=== PATIENT | male | born 1985 | race Native Hawaiian/Other Pacific Islander ===

== ENCOUNTER 2016-09-25 21:11 | Observation (INO) | payer MEDICAID ==
[2016-09-25 21:19] VITALS: BMI 34.5
--- NOTE | 2016-09-25 21:41 | ED PDOC ---
Arrival/HPI <Juan M Damian - Last Filed: 09/25/16 23:23> - General Historian: Patient <Jose D Dey - Last Filed: 09/26/16 14:44> - General Chief Complaint: Upper Extremity Problem/Injury Time Seen by Provider: 09/25/16 21:22 - History of Present Illness Narrative History of Present Illness (Text): 09/25/16 21:42 31 y/o male, pmh including htn/hyperlipidemia, nkda, here with the family member c/o unable to move the left arm since 09/24/2016 7pm. Based on the [facility] charts and the patient's story. Pt. stated that he suddenly developed unable to move the left arm and slurred speech last night around 7pm, arrived at the [facility] around 7:30pm which he was TPA candidate but he declined. He ended up admitted to the [facility] but later sign out against medical advice. The initial CT head at the [facility] was negative. Pt. stated that the slurred speech resolved but still unable to move the left arm and here for the second evaluation. Pt. has no chest pain or shortness of breath. Pt. stated that this is stress related causing his left arm to be unable to move. Pt. has no homocidal or suicidal ideation, no auditory or visual hallucination, no chest pain or shortness of breath. (Jose D Dey) Past Medical History - Provider Review Nursing Documentation Reviewed: Yes - Infectious Disease Hx of Infectious Diseases: None - Cardiac Hx Cardiac Disorders: Yes Hx Hypertension: Yes - Pulmonary Hx Respiratory Disorders: No - Neurological Hx Neurological Disorder: No - HEENT Hx HEENT Disorder: No - Renal Hx Renal Disorder: No - Endocrine/Metabolic Hx Endocrine Disorders: No - Hematological/Oncological Hx Blood Disorders: No - Integumentary Hx Dermatological Disorder: No - Musculoskeletal/Rheumatological Hx Musculoskeletal Disorders: No - Gastrointestinal Hx Gastrointestinal Disorders: No - Genitourinary/Gynecological Hx Genitourinary Disorders: No - Psychiatric Hx Psychophysiologic Disorder: Yes Hx Anxiety: Yes Hx Depression: Yes Hx Substance Use: No - Anesthesia Hx Anesthesia: No <Jose D Dey - Last Filed: 09/26/16 14:44> Family/Social History - Physician Review Nursing Documentation Reviewed: Yes Family/Social History: Unknown Family HX Smoking Status: Heavy Smoker > 10 Cigarettes Daily Hx Alcohol Use: No Hx Substance Use: No <Jose D Dey - Last Filed: 09/26/16 14:44> Allergies/Home Meds <Juan M Damian - Last Filed: 09/25/16 23:23> <Jose D Dey - Last Filed: 09/26/16 14:44> Allergies/Adverse Reactions: Allergies No Known Allergies Allergy (Verified 09/25/16 21:21) Home Medications: Home Meds Medication Instructions Recorded Confirmed Sertraline HCl [Zoloft] 25 mg PO DAILY 09/25/16 09/25/16 Simvastatin [Zocor] 20 mg PO DAILY 09/25/16 09/25/16 Review of Systems - Review of Systems Constitutional: absent: Fatigue, Fevers Eyes: absent: Vision Changes ENT: absent: Hearing Changes Respiratory: absent: SOB Cardiovascular: absent: Chest Pain Gastrointestinal: absent: Abdominal Pain, Nausea, Vomiting Genitourinary Male: absent: Dysuria Musculoskeletal: absent: Arthralgias, Back Pain, Neck Pain, Joint Swelling, Myalgias Neurological: Focal Weakness. absent: Headache, Dizziness, Gait Changes, Speech Changes, Facial Droop, Disequilibrium Endocrine: absent: Diaphoresis Hemo/Lymphatic: absent: Adenopathy Psychiatric: absent: Anxiety <Jose D Dey - Last Filed: 09/26/16 14:44> Physical Exam Vital Signs Reviewed: Yes Temperature: Afebrile Blood Pressure: Normal Pulse: Regular Respiratory Rate: Normal Appearance: Positive for: Well-Appearing, Non-Toxic, Comfortable Pain Distress: None Mental Status: Positive for: Alert and Oriented X 3 - Systems Exam Head: Present: Atraumatic, Normocephalic Pupils: Present: PERRL Extroacular Muscles: Present: EOMI Conjunctiva: Present: Normal Mouth: Present: Moist Mucous Membranes Neck: Present: Normal Range of Motion Respiratory/Chest: Present: Clear to Auscultation, Good Air Exchange. No: Respiratory Distress, Accessory Muscle Use Cardiovascular: Present: Regular Rate and Rhythm, Normal S1, S2. No: Murmurs Abdomen: Present: Normal Bowel Sounds. No: Tenderness, Distention, Peritoneal Signs Back: Present: Normal Inspection Upper Extremity: Present: Normal Inspection. No: Cyanosis, Edema Lower Extremity: Present: Normal Inspection. No: Edema Neurological: Present: GCS=15, Speech Normal, Gait Normal, Memory Normal, Other (LUE: sensation intact, motor 1/5, +radial pulse. RUE/bilateral LE: sensation intact, motor 5/5.) Skin: Present: Warm, Dry, Normal Color. No: Rashes Psychiatric: Present: Alert, Oriented x 3, Normal Insight, Normal Concentration <Jose D Dey - Last Filed: 09/26/16 14:44> Vital Signs Temp Pulse Resp BP Pulse Ox 09/26/16 00:00 72 18 104/62 96 09/25/16 22:38 98.2 F 79 18 131/71 98 09/25/16 21:35 76 18 119/81 97 09/25/16 21:31 98.1 F 80 18 139/88 98 Medical Decision Making <Juan M Damian - Last Filed: 09/25/16 23:23> - Lab Interpretations I have reviewed the lab results: Yes Interpretation: Abnormal lab values (Triglyceride 1427, HDL 24) - RAD Interpretation Track Oiler: Radiologist - EKG Interpretation Interpreted by ED Physician: Yes Type: 12 lead EKG Comparison: Com.w/previous EKG <Jose D Dey - Last Filed: 09/26/16 14:44> ED Course and Treatment: 09/25/16 21:39 -labs/ua/lipid panel/hgba1c -CT head -Chest x-ray -swallow screen -air quality technician -IVF/aspirin -NIHSS 4, past the TPA window, not a TPA candidate, will give aspirin 325mg po if CT head is negative -observe and reassess 09/25/16 23:13 -EKG: NSR @ 75 BPM, no ST elevation or depression, no T wave inversion. -CT head show no acute findings, aspirin 325mg po ordered. -Chest x-ray show no active disease -labs are non-significant with negative troponin except Triglyceride 1427, HDL 24. Lipitor 20mg po ordered. -I did use the 18G needle to test for the pain reflex for the lt. upper extremity. -I will admit the patient to the telemetry floor for the hospitalist for further evaluation. -I discussed the case with the ER attending Dr. Damian, he agreed on the treatment and admission order, he will put in the admission order. 09/25/16 23:58 -I explained to the patient about the labs/radiology results with the patient, he agreed on the admission. -Me and Dr. Damian explained the case to Dr. Triana with Dr. Hedy Thompson's consult, agreed on the admission for the further evaluation and testing if indicated. -Dr. Damian personally spoke to Dr. Hedy Thompson case which request to have MRI of brain/neck MRA, Dr. Damian agreed on the order. (Jose D Dey) - Lab Interpretations Lab Results: 09/25/16 21:52 09/25/16 21:52 Lab Results 09/25/16 21:52: Blood Type AB POSITIVE, Antibody Screen Negative, BBK History Checked Patient has bt 09/25/16 21:52: Sodium 137, Potassium 4.2, Chloride 105, Carbon Dioxide 26, Anion Gap 10, BUN 18, Creatinine 0.9, Est GFR ( Amer) > 60, Est GFR (Non- Af Amer) > 60, Random Glucose 115 H, Calcium 8.6, Total Bilirubin 0.7, AST 31, ALT 48, Alkaline Phosphatase 54, Lactate Dehydrogenase 507, Total Creatine Kinase 152, Troponin I < 0.01, Total Protein 7.4, Albumin 4.0, Globulin 3.4, Albumin/Globulin Ratio 1.2, Triglycerides 1427 H, Cholesterol 184, LDL Cholesterol Direct < 30, HDL Cholesterol 24 L 09/25/16 21:52: PT 10.3, INR 0.95, APTT 28.5 09/25/16 21:52: WBC 8.3, RBC 5.98, Hgb 15.7, Hct 44.6, MCV 74.6 L, MCH 26.3, MCHC 35.2, RDW 14.7 H, Plt Count 211, MPV 9.7, Gran % 53.4, Lymph % (Auto) 37.3 H, [place] % (Auto) 6.7 H, Eos % (Auto) 2.2, Baso % (Auto) 0.4, Gran # 4.43, Lymph # 3.1, [place] # 0.6, Eos # 0.2, Baso # 0.03 - RAD Interpretation Radiology Orders: 09/25/16 21:35 CHEST PORTABLE [RAD] Stat 09/25/16 21:36 HEAD W/O CONTRAST [CT] Stat CT Head: no acute findings. (Dey,Jose D Q) - EKG Interpretation EKG Interpretation (Text): 09/25/16 21:50 EKG: NSR @ 75 BPM, no ST elevation or depression, no T wave inversion. (Jose D Dey Q) - Medication Orders Current Medication Orders: Discontinued Medications Acetaminophen (Tylenol 325mg Tab) 650 mg PO Q6H PRN PRN Reason: Fever >100.4 F Alprazolam (Xanax) 0.5 mg PO STAT STA PRN Reason: Protocol Stop: 09/26/16 09:09 Last Admin: 09/26/16 09:22 Dose: 0.5 mg Re-Assess: Reassess Psych Meds Document 09/26/16 10:22 JFR (Rec: 09/26/16 10:48 JFR [id number]) Reassess Psych Med Effective Aspirin (Aspirin) 325 mg PO STAT STA Stop: 09/25/16 22:39 Last Admin: 09/25/16 23:02 Dose: 325 mg Aspirin (Ecotrin) 81 mg PO 0800 JOSEPH Atorvastatin Calcium (Lipitor) 20 mg PO STAT STA Stop: 09/25/16 23:12 Last Admin: 09/25/16 23:35 Dose: 20 mg Atorvastatin Calcium (Lipitor) 10 mg PO DIN JOSEPH Atorvastatin Calcium (Lipitor) 40 mg PO DIN JOSEPH Atorvastatin Calcium (Lipitor) 10 mg PO DIN JOSEPH Clonazepam (Klonopin) 0.25 mg PO BID JOSEPH PRN Reason: Protocol Last Admin: 09/26/16 10:48 Dose: 0.25 mg Re-Assess: Reassess Psych Meds Document 09/26/16 11:48 JFR (Rec: 09/26/16 12:10 JFR [id number]) Reassess Psych Med Effective Fenofibrate (Tricor) 145 mg PO DAILY [facility] Last Admin: 09/26/16 10:48 Dose: 145 mg Hydralazine HCl (Apresoline) 10 mg IVP Q6 PRN PRN Reason: Systolic Blood Pressure Lorazepam (Ativan) 1 mg IVP ONCE ONE PRN Reason: Protocol Stop: 09/26/16 12:49 Sertraline HCl (Zoloft) 25 mg PO DAILY JOSEPH Sertraline HCl (Zoloft) 125 mg PO DAILY [facility] Last Admin: 09/26/16 10:49 Dose: 125 mg NIHSS Scale ([place]) Time Performed: 21:38 - How Severe is the Stoke Baseline Level of Consciousness: 0=Alert LOC to Questions: 0=Both comments correct LOC to commands: 0=Obeys both correctly Best Gaze: 0=Normal Visual: 0=No visual loss Facial: 0=Normal Motor Arm - Left: 4=No movement Motor Arm - Right: 0=No drift Motor Leg - Left: 0=No drift Motor Leg - Right: 0=No drift Limb Ataxia: 0=Absent Sensory: 0=Normal Best Language: 0=No aphasia Dysarthia: 0=Normal articulation Extinction & Inattention (Neglect): 0=Normal, no object Score: 4 Risk Level: Minor Stroke Risk <Jose D Dey - Last Filed: 09/26/16 14:44> - PA / DISTRICT SALES COORDINATOR / Resident Statement LORIE has reviewed & agrees with the documentation as recorded. LORIE has examined the patient and agrees with the treatment plan. <Juan M Damian - Last Filed: 09/25/16 23:23> - PA / DISTRICT SALES COORDINATOR / Resident Statement LORIE has reviewed & agrees with the documentation as recorded. LORIE has examined the patient and agrees with the treatment plan. <Jose D Dey - Last Filed: 09/26/16 14:44> Disposition/Present on Arrival <Juan M Damian - Last Filed: 09/25/16 23:23> - Present on Arrival Any Indicators Present on Arrival: No History of DVT/PE: No History of Uncontrolled Diabetes: No Urinary Catheter: No History of Decub. Ulcer: No History Surgical Site Infection Following: None - Disposition Have Diagnosis and Disposition been Completed?: Yes Disposition Time: 22:40 Patient Plan: Admission, Telemetry <Jose D Dey - Last Filed: 09/26/16 14:44> - Disposition Diagnosis: Focal neurological deficit, Hypertriglyceridemia Disposition: HOSPITALIZED Condition: STABLE
[2016-09-25 22:07] LABS: ADD MANUAL DIFF? NO
[2016-09-25 22:21] LABS: ALB/GLOB RATIO 1.2 (1.1-1.8); ALKALINE PHOSPHATASE 54 U/L (38-133); ALT/SGPT 48 U/L (7-56); AST/SGOT 31 U/L (15-59); BILIRUBIN,TOTAL 0.7 mg/dL (0.2-1.3); BLOOD UREA NITROGEN 18 mg/dL (7-21); CALCIUM 8.6 mg/dL (8.4-10.5); CARBON DIOXIDE 26 mmol/L (21-33); CHLORIDE 105 mmol/L (98-107); CHOLESTEROL 184 mg/dL (130-200); GFR AFRICAN-AMERICAN > 60; GLUCOSE,RANDOM 115 mg/dL (70-110); POTASSIUM 4.2 mmol/L (3.6-5.0); SODIUM 137 mmol/L (132-148); TOTAL PROTEIN 7.4 g/dL (5.8-8.3)
[2016-09-25 22:30] LABS: BASO # 0.03 K/mm3 (0.0-2.0); BASO % 0.4 % (0.0-3.0); EOS # 0.2 (0.0-0.7); EOS % 2.2 % (1.5-5.0); GRAN # 4.43 (1.4-6.5); GRAN % 53.4 % (50.0-68.0); HEMATOCRIT 44.6 % (42.0-52.0); LYMPH # 3.1 (1.2-3.4); LYMPH % 37.3 % (22.0-35.0); MEAN CELL VOLUME 74.6 fL (80.0-105.0); MEAN CORPUSCULAR HEMOGLOBIN 26.3 pg (25.0-35.0); MEAN CORPUSCULAR HGB CONC 35.2 g/dl (31.0-37.0); MEAN PLATELET VOLUME 9.7 fl (7.0-11.0); MONO # 0.6 (0.1-0.6); MONO % 6.7 % (1.0-6.0); PLATELET COUNT 211 10^3/uL (120.0-450.0); RED CELL DISTRIBUTION WIDTH 14.7 % (11.5-14.5); WHITE BLOOD COUNT 8.3 10^3/ul (4.5-11.0)
--- NOTE | 2016-09-25 22:32 | CT ---
EXAM: CT Head Without Intravenous Contrast CLINICAL HISTORY: 31 years old, male; Pain; Headache; Headache not specified; Additional info: Lt. Upper extremity focal deficits x 26 hours TECHNIQUE: Axial computed tomography images of the head/brain without intravenous contrast. This CT exam was performed using one or more of the following dose reduction techniques: automated exposure control, adjustment of the mA and/or kV according to patient size, and/or use of iterative reconstruction technique. COMPARISON: No relevant prior studies available. FINDINGS: Brain: No acute intracranial hemorrhage. No significant white matter disease. No edema. Ventricles: No significant ventriculomegaly. Bones: No acute displaced fracture. Sinuses: Unremarkable as visualized. No acute sinusitis. Mastoid air cells: Unremarkable as visualized. No mastoid effusion. IMPRESSION: No acute intracranial hemorrhage, or suspicious mass effect. Acute infarction may be CT occult within first 24 hours. If a focal deficit persists, consider followup CT or MRI for further evaluation.
[2016-09-25 22:33] LABS: TROPONIN I < 0.01 ng/mL
[2016-09-25 22:54] LABS: INR 0.95 (0.93-1.08); PARTIAL THROMBOPLASTIN TIME 28.5 Seconds (23.7-30.8)
[2016-09-26 00:07] VITALS: O2SAT 96
--- NOTE | 2016-09-26 01:45 | CP.PCM.HP ---
<Bismark Billy - Last Filed: 09/26/16 05:05> History of Present Illness - History of Present Illness History of Present Illness: 31 year old [place] male with past medical history of hypertension, hyperlipidemia and depression presents to [facility] ED complaining of unable to move his left upper extremity. Patient suddenly lost his left arm motor function along with slurred of speech yesterday approximately at 7pm. Patient went to [facility] immediately and CT head was negative for intracranial hemorrhage. Patient was offered TPA but refused due to fear of side effects. Patient was admitted at [facility] but signed against medical advice because he was not feeling comfortable being in the hospital at night. Today at [facility] ED, patient reports his slurred of speech has resolved but still unable to move the left arm. 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 Patient state his left arm symptom has happened before but it only lasted a few hours. Patient also reports having bilateral LE weakness which lasted him 1 month. Patient's friend at bedside states patient's symptoms are very like brought on by stress. Denies headache, vision changes, auditory or visual hallucinations, fever, chills, chest pain, shortness of breath, abdominal pain, nausea, vomiting , diarrhea, urinary symptoms. PMD: Dr. Nigel Dalton PMHx:hypertension, hyperlipidemia, anxeity and depression Allergy: NKDA Social Hx: current smoker for past 4 years (1 pack a day), denies alcohol or other drug use Family Hx: Unknown Home meds: Zoloft, simvastatin Present on Admission - Present on Admission Any Indicators Present on Admission: No History of DVT/PE: No History of Uncontrolled Diabetes: No Review of Systems - Constitutional Constitutional: As Per HPI. absent: Chills, Fatigue, Fever, Headache - EENT Eyes: As Per HPI. absent: Change in Vision Ears: As Per HPI. absent: Disequilibrium, Dizziness Nose/Mouth/Throat: As Per HPI. absent: Hoarsness - Cardiovascular Cardiovascular: As Per HPI. absent: Chest Pain, Syncope - Respiratory Respiratory: As Per HPI. absent: Dyspnea, Wheezing, Snoring - Gastrointestinal Gastrointestinal: As Per HPI. absent: Abdominal Pain, Nausea, Vomiting - Genitourinary Genitourinary: As Per HPI. absent: Urinary Frequency, Urinary Hesitance, Urinary Urgency - Musculoskeletal Musculoskeletal: As Per HPI. absent: Deformity, Numbness Additional comments: unable to move left arm - Integumentary Integumentary: As Per HPI. absent: Lesions, Rash, Swelling - Neurological Neurological: As Per HPI. absent: Confusion, Dizziness, Numbness, Headaches, Syncope, Tingling - Psychiatric Psychiatric: As Per HPI. absent: Confusion, Depression, Hallucinations - Endocrine Endocrine: As Per HPI - Hematologic/Lymphatic Hematologic: As Per HPI Past Patient History - Infectious Disease Hx of Infectious Diseases: None - Past Social History Smoking Status: Heavy Smoker > 10 Cigarettes Daily - CARDIAC Hx Cardiac Disorders: Yes Hx Hypertension: Yes - PULMONARY Hx Respiratory Disorders: No - NEUROLOGICAL Hx Neurological Disorder: No - HEENT Hx HEENT Problems: No - RENAL Hx Chronic Kidney Disease: No - ENDOCRINE/METABOLIC Hx Endocrine Disorders: No - HEMATOLOGICAL/ONCOLOGICAL Hx Blood Disorders: No - INTEGUMENTARY Hx Dermatological Problems: No - MUSCULOSKELETAL/RHEUMATOLOGICAL Hx Musculoskeletal Disorders: No - GASTROINTESTINAL Hx Gastrointestinal Disorders: No - GENITOURINARY/GYNECOLOGICAL Hx Genitourinary Disorders: No - PSYCHIATRIC Hx Psychophysiologic Disorder: Yes Hx Anxiety: Yes Hx Depression: Yes Hx Substance Use: No - SURGICAL HISTORY Hx Surgeries: No - ANESTHESIA Hx Anesthesia: No Meds Allergies/Adverse Reactions: Allergies Allergy/AdvReac Type Severity Reaction Status Date / Time No Known Allergies Allergy Verified 09/25/16 21:21 Physical Exam - Constitutional Appears: Non-toxic, No Acute Distress - Head Exam Head Exam: ATRAUMATIC, NORMAL INSPECTION, NORMOCEPHALIC - Eye Exam Eye Exam: EOMI, Normal appearance, PERRL - ENT Exam ENT Exam: Mucous Membranes Moist, Normal Exam - Neck Exam Neck exam: Positive for: Normal Inspection - Respiratory Exam Respiratory Exam: Clear to Auscultation Bilateral, NORMAL BREATHING PATTERN. absent: Rhonchi, Wheezes, Respiratory Distress - Cardiovascular Exam Cardiovascular Exam: REGULAR RHYTHM, RRR, +S1, +S2 - GI/Abdominal Exam GI & Abdominal Exam: Normal Bowel Sounds, Soft. absent: Tenderness - Extremities Exam Extremities exam: Positive for: normal capillary refill, normal inspection, pedal pulses present. Negative for: joint swelling, pedal edema, tenderness - Back Exam Back exam: NORMAL INSPECTION - Neurological Exam Neurological exam: Alert, CN II-XII Intact, Oriented x3 - Expanded Neurological Exam Expanded Neuro motor strength exam: Left Upper Extremity: 2/1, Right Upper Extremity: 5, Left Lower Extremity: 5, Right Lower Extremity: 5 DTR: Patellar Left: 2+, Patellar Right: 2+, Tricep Left: 2+, Tricep Right: 2+ - Psychiatric Exam Psychiatric exam: Normal Affect, Normal Mood - Skin Skin Exam: Dry, Normal Color, Warm Results - Vital Signs Recent Vital Signs: Last Vital Signs Temp 98.2 F 09/25/16 22:38 Pulse 72 09/26/16 00:00 Resp 18 09/26/16 00:00 BP 104/62 09/26/16 00:00 Pulse Ox 96 09/26/16 00:00 - Labs Result Diagrams: 09/25/16 21:52 09/25/16 21:52 Assessment & Plan - Assessment and Plan (Free Text) Assessment: 31 year old male with past medical history of hypertension, hyperlipidemia, anxiety and depression presents with unable to move left arm. The same complaint was evaluated at [facility] 1 day before but decided to sign out AMA. Plan: Left Upper Extremity weakness -Psychosomatic vs MS vs CVA vs brachial plexus nerve damage -CT head showed no intracranial hemorrhage -TPA offered at [facility] but refused -Neurology Dr. Hedy Thompson, help appreciated -Follow up B12 -Follow up brain MRI, neck MRI Dyslipidemia -Resume atorvastatin -Start Fenofibrate Hypertriglyceridemia -TG 1427 in ED -Start Fenofibrate Hypertension -Hydralazine 10mg IV prn Depression -Resume zoloft -Psychiatry consult, Dr. Ardon help appreciated <Santo Triana - Last Filed: 10/03/16 19:27> Results - Vital Signs Recent Vital Signs: Last Vital Signs Temp 98.2 F 09/26/16 12:00 Pulse 80 09/26/16 12:00 Resp 21 09/26/16 12:00 BP 135/82 09/26/16 12:00 Pulse Ox 96 09/26/16 06:00 - Labs Result Diagrams: 09/26/16 07:50 09/26/16 07:50 Attending/Attestation - Attestation I have personally seen and examined this patient.: Yes I have fully participated in the care of the patient.: Yes I have reviewed all pertinent clinical information: Yes
[2016-09-26 08:00] LABS: ADD MANUAL DIFF? NO
[2016-09-26 08:08] LABS: BASO # 0.02 K/mm3 (0.0-2.0); BASO % 0.3 % (0.0-3.0); EOS # 0.1 (0.0-0.7); EOS % 1.8 % (1.5-5.0); GRAN # 3.05 (1.4-6.5); GRAN % 48.8 % (50.0-68.0); HEMATOCRIT 45.1 % (42.0-52.0); LYMPH # 2.6 (1.2-3.4); LYMPH % 41.2 % (22.0-35.0); MEAN CELL VOLUME 75.3 fL (80.0-105.0); MEAN CORPUSCULAR HEMOGLOBIN 25.9 pg (25.0-35.0); MEAN CORPUSCULAR HGB CONC 34.4 g/dl (31.0-37.0); MEAN PLATELET VOLUME 9.8 fl (7.0-11.0); MONO # 0.5 (0.1-0.6); MONO % 7.9 % (1.0-6.0); PLATELET COUNT 185 10^3/uL (120.0-450.0); RED CELL DISTRIBUTION WIDTH 14.7 % (11.5-14.5); WHITE BLOOD COUNT 6.2 10^3/ul (4.5-11.0)
[2016-09-26 08:32] LABS: BLOOD UREA NITROGEN 18 mg/dL (7-21); CARBON DIOXIDE 26 mmol/L (21-33); CHLORIDE 108 mmol/L (98-107); GFR AFRICAN-AMERICAN > 60; GLUCOSE,RANDOM 142 mg/dL (70-110); POTASSIUM 3.8 mmol/L (3.6-5.0); SODIUM 140 mmol/L (132-148)
--- NOTE | 2016-09-26 10:53 | RAD ---
HISTORY: medical clearance COMPARISON: No prior. FINDINGS: LUNGS: No active pulmonary disease. PLEURA: Nonspecific elevation of right hemidiaphragm. No evidence of pleural effusion or pneumothorax. CARDIOVASCULAR: Normal. OSSEOUS STRUCTURES: No significant abnormalities. VISUALIZED UPPER ABDOMEN: Normal. OTHER FINDINGS: None. IMPRESSION: No active disease.
[2016-09-26 12:04] VITALS: BP 135/82; PULSE 80; RESP 21; TEMP 98.2
--- NOTE | 2016-09-26 13:40 | CP.PCM.DIS ---
<Eloina Allan - Last Filed: 09/26/16 13:37> Provider - Provider Date of Admission: 09/26/16 00:05 Attending physician: Kriss Peguero MD Primary care physician: Fariha Dalton MD Consults: Neuro: Dr. Thompson Psych: Dr. Ardon Time Spent in preparation of Discharge (in minutes): 45 Diagnosis - Discharge Diagnosis (1) Depression Status: Chronic (2) Focal neurological deficit Status: Acute (3) Hypertriglyceridemia Status: Chronic Hospital Course - Lab Results Lab Results: Most Recent Lab Values WBC 6.2 10^3/ul (4.5-11.0) D 09/26/16 07:50 RBC 5.99 10^6/uL (3.5-6.1) 09/26/16 07:50 Hgb 15.5 gm/dL (14.0-18.0) 09/26/16 07:50 Hct 45.1 % (42.0-52.0) 09/26/16 07:50 MCV 75.3 fL (80.0-105.0) L 09/26/16 07:50 MCH 25.9 pg (25.0-35.0) 09/26/16 07:50 MCHC 34.4 g/dl (31.0-37.0) 09/26/16 07:50 RDW 14.7 % (11.5-14.5) H 09/26/16 07:50 Plt Count 185 10^3/uL (120.0-450.0) 09/26/16 07:50 MPV 9.8 fl (7.0-11.0) 09/26/16 07:50 Gran % 48.8 % (50.0-68.0) L 09/26/16 07:50 Lymph % (Auto) 41.2 % (22.0-35.0) H 09/26/16 07:50 [place] % (Auto) 7.9 % (1.0-6.0) H 09/26/16 07:50 Eos % (Auto) 1.8 % (1.5-5.0) 09/26/16 07:50 Baso % (Auto) 0.3 % (0.0-3.0) 09/26/16 07:50 Gran # 3.05 (1.4-6.5) 09/26/16 07:50 Lymph # 2.6 (1.2-3.4) 09/26/16 07:50 [place] # 0.5 (0.1-0.6) 09/26/16 07:50 Eos # 0.1 (0.0-0.7) 09/26/16 07:50 Baso # 0.02 K/mm3 (0.0-2.0) 09/26/16 07:50 PT 10.3 Seconds (9.9-11.8) 09/25/16 21:52 INR 0.95 (0.93-1.08) 09/25/16 21:52 APTT 28.5 Seconds (23.7-30.8) 09/25/16 21:52 Sodium 140 mmol/L (132-148) 09/26/16 07:50 Potassium 3.8 mmol/L (3.6-5.0) 09/26/16 07:50 Chloride 108 mmol/L (98-107) H 09/26/16 07:50 Carbon Dioxide 26 mmol/L (21-33) 09/26/16 07:50 Anion Gap 10 (10-20) 09/26/16 07:50 BUN 18 mg/dL (7-21) 09/26/16 07:50 Creatinine 0.8 mg/dL (0.5-1.4) 09/26/16 07:50 Est GFR ( Amer) > 60 09/26/16 07:50 Est GFR (Non-Af Amer) > 60 09/26/16 07:50 Random Glucose 142 mg/dL (70-110) H 09/26/16 07:50 Calcium 9.0 mg/dL (8.4-10.5) 09/26/16 07:50 Total Bilirubin 0.7 mg/dL (0.2-1.3) 09/25/16 21:52 AST 31 U/L (15-59) 09/25/16 21:52 ALT 48 U/L (7-56) 09/25/16 21:52 Alkaline Phosphatase 54 U/L (38-133) 09/25/16 21:52 Lactate Dehydrogenase 507 U/L (333-699) 09/25/16 21:52 Total Creatine Kinase 152 U/L (35-230) 09/25/16 21:52 Troponin I < 0.01 ng/mL 09/25/16 21:52 Total Protein 7.4 g/dL (5.8-8.3) 09/25/16 21:52 Albumin 4.0 g/dL (3.0-4.8) 09/25/16 21:52 Globulin 3.4 gm/dL 09/25/16 21:52 Albumin/Globulin Ratio 1.2 (1.1-1.8) 09/25/16 21:52 Triglycerides 1427 mg/dL (35-160) H 09/25/16 21:52 Cholesterol 184 mg/dL (130-200) 09/25/16 21:52 LDL Cholesterol Direct < 30 mg/dL (0-129) 09/25/16:52 HDL Cholesterol 24 mg/dL (29-60) L 09/25/16 21:52 Blood Type AB POSITIVE 09/25/16 21:52 Antibody Screen Negative 09/25/16 21:52 BBK History Checked Patient has bt 09/25/16 21:52 - Hospital Course Hospital Course: 31 year old male with past medical history of hypertension, hyperlipidemia, anxiety and depression is admitted for focal neurological deficit in L UE. Patient was seen and [facility] the day before for the same reason and left AMA without a specific reason. While at [facility], patient was offered TPA by the ED physician and patient refused. Patient then came to [facility]. CT of head at [facility] and at [facility] last night was negative. Patient was given a stat dose of Aspirin. Neurology and psych were consulted. Patient was scheduled for MRI of head but refused due to feeling claustrophobic even after being given medication for anxiety. Patient signed out AMA after being explained the risks of not getting further tests and treatment. Patient is A& Ox3 and states that he understands. Before leaving, patient is able to move all 4 extremities with difficulty. He is moving his left UE but slowly. Patient is to follow up with PMD upon discharge. Patient is to follow up with neurologist upon discharge. Patient is to continue taking home medications as prescribed. Patient is also sent home with a script of Aspirin 81 mg po qd. Please see MAR for full details. - Date & Time of H&P Date of H&P: 09/26/16 Time of H&P: 13:37 Discharge Exam - Head Exam Head Exam: ATRAUMATIC, NORMAL INSPECTION, NORMOCEPHALIC - Eye Exam Eye Exam: EOMI - ENT Exam ENT Exam: Mucous Membranes Moist - Respiratory Exam Respiratory Exam: Clear to PA & Lateral. absent: Rales, Rhonchi, Wheezes - Cardiovascular Exam Cardiovascular Exam: REGULAR RHYTHM, +S1, +S2. absent: Diastolic murmur, Gallop , Rubs, Systolic Murmur - GI/Abdominal Exam GI & Abdominal Exam: Normal Bowel Sounds. absent: Distended, Firm, Guarding, Rigid, Soft - Extremities Exam Additional comments: no edema or tenderness - Neurological Exam Neurological exam: Alert, CN II-XII Intact, Oriented x3 Additional comments: intact sensation in all 4 extremities 0/5 strength in L UE 5/5 strength in rest of extremities. 2/4 patellar reflexes in LE B/L Pt is able to hold left arm above hand and able to bring it down without assistance or difficulty - Psychiatric Exam Psychiatric exam: Normal Affect, Normal Mood - Skin Skin Exam: Dry, Intact, Normal Color, Warm Discharge Plan - Discharge Medications Prescriptions: Aspirin [Ecotrin] 81 mg PO 0800 #30 - Follow Up Plan Condition: STABLE Disposition: AGAINST MEDICAL ADVICE Instructions: Depression (DC), Hyperlipidemia (DC) Additional Instructions: Patient is to follow up with PMD upon discharge. Patient is to follow up with neurologist upon discharge. Patient is to continue taking home medications as prescribed. Patient is also sent home with a script of Aspirin 81 mg po qd. Referrals: Nisha Dalton MD [Primary Care Provider] - <Kriss Peguero - Last Filed: 09/26/16 14:49> Provider - Provider Date of Admission: 09/26/16 00:05 Attending physician: Kriss Peguero MD Primary care physician: Fariha Dalton MD Hospital Course - Lab Results Lab Results: Most Recent Lab Values WBC 6.2 10^3/ul (4.5-11.0) D 09/26/16 07:50 RBC 5.99 10^6/uL (3.5-6.1) 09/26/16 07:50 Hgb 15.5 gm/dL (14.0-18.0) 09/26/16 07:50 Hct 45.1 % (42.0-52.0) 09/26/16 07:50 MCV 75.3 fL (80.0-105.0) L 09/26/16 07:50 MCH 25.9 pg (25.0-35.0) 09/26/16 07:50 MCHC 34.4 g/dl (31.0-37.0) 09/26/16 07:50 RDW 14.7 % (11.5-14.5) H 09/26/16 07:50 Plt Count 185 10^3/uL (120.0-450.0) 09/26/16 07:50 MPV 9.8 fl (7.0-11.0) 09/26/16 07:50 Gran % 48.8 % (50.0-68.0) L 09/26/16 07:50 Lymph % (Auto) 41.2 % (22.0-35.0) H 09/26/16 07:50 [place] % (Auto) 7.9 % (1.0-6.0) H 09/26/16 07:50 Eos % (Auto) 1.8 % (1.5-5.0) 09/26/16 07:50 Baso % (Auto) 0.3 % (0.0-3.0) 09/26/16 07:50 Gran # 3.05 (1.4-6.5) 09/26/16 07:50 Lymph # 2.6 (1.2-3.4) 09/26/16 07:50 [place] # 0.5 (0.1-0.6) 09/26/16 07:50 Eos # 0.1 (0.0-0.7) 09/26/16 07:50 Baso # 0.02 K/mm3 (0.0-2.0) 09/26/16 07:50 PT 10.3 Seconds (9.9-11.8) 09/25/16 21:52 INR 0.95 (0.93-1.08) 09/25/16 21:52 APTT 28.5 Seconds (23.7-30.8) 09/25/16 21:52 Sodium 140 mmol/L (132-148) 09/26/16 07:50 Potassium 3.8 mmol/L (3.6-5.0) 09/26/16 07:50 Chloride 108 mmol/L (98-107) H 09/26/16 07:50 Carbon Dioxide 26 mmol/L (21-33) 09/26/16 07:50 Anion Gap 10 (10-20) 09/26/16 07:50 BUN 18 mg/dL (7-21) 09/26/16 07:50 Creatinine 0.8 mg/dL (0.5-1.4) 09/26/16 07:50 Est GFR ( Amer) > 60 09/26/16 07:50 Est GFR (Non-Af Amer) > 60 09/26/16 07:50 Random Glucose 142 mg/dL (70-110) H 09/26/16 07:50 Calcium 9.0 mg/dL (8.4-10.5) 09/26/16 07:50 Total Bilirubin 0.7 mg/dL (0.2-1.3) 09/25/16 21:52 AST 31 U/L (15-59) 09/25/16 21:52 ALT 48 U/L (7-56) 09/25/16 21:52 Alkaline Phosphatase 54 U/L (38-133) 09/25/16 21:52 Lactate Dehydrogenase 507 U/L (333-699) 09/25/16 21:52 Total Creatine Kinase 152 U/L (35-230) 09/25/16 21:52 Troponin I < 0.01 ng/mL 09/25/16 21:52 Total Protein 7.4 g/dL (5.8-8.3) 09/25/16 21:52 Albumin 4.0 g/dL (3.0-4.8) 09/25/16 21:52 Globulin 3.4 gm/dL 09/25/16 21:52 Albumin/Globulin Ratio 1.2 (1.1-1.8) 09/25/16 21:52 Triglycerides 1427 mg/dL (35-160) H 09/25/16 21:52 Cholesterol 184 mg/dL (130-200) 09/25/16 21:52 LDL Cholesterol Direct < 30 mg/dL (0-129) 09/25/16 21:52 HDL Cholesterol 24 mg/dL (29-60) L 09/25/16 21:52 Vitamin B12 263 pg/mL (239-931) 09/26/16 07:50 Blood Type AB POSITIVE 09/25/16 21:52 Antibody Screen Negative 09/25/16 21:52 BBK History Checked Patient has bt 09/25/16 21:52 Attending/Attestation - Attestation I have personally seen and examined this patient.: Yes I have fully participated in the care of the patient.: Yes I have reviewed all pertinent clinical information, including history, physical exam and plan: Yes Notes (Text): 09/26/16 14:44 Attending note; Patient seen and examined with resident in room 277. Patient is alert, awake and oriented. Still complaining of not able to move his left arm. Patient was initially seen in [facility] ER on 09/24/16 for a left arm weakness. CT head was negative. Initially suggested to get TPA. Patient refused and signed AMA. Patient came to [facility] yesterday with a similar complaints. Patient with a history of long-standing weakness of the arms and legs. Had an episode of left arm weakness over 7 years ago in [place] which resolved within 2 hours. Given his history of bilateral lower extremity weakness about 5 years ago in [place] resolved over 4 weeks. Currently with a left arm weakness for 2 days. Patient is also complaining of extreme depression due to loss of insurance/ green card. Patient refused MRI today because of claustrophobia. Neurology evaluation appreciated. Psychiatric evaluation ordered. Patient signed AMA. Patient was able to move his left arm at the time of discharge. Diagnosis; Left arm weakness Conversion disorder Depression Hypercholesterolemia
--- NOTE | 2016-09-26 13:40 | CON ---
DATE: 09/26/2016 CHIEF COMPLAINT: Left arm weakness. HISTORY OF PRESENT ILLNESS: This is a 31-year-old man with past medical history of hypertension, hyp erlipidemia, depression, who is unable to move his left arm and some questionable slurred speech. He went to [facility] where CT head showed no acute intracranial abnormality. He was offered TPA but refusing, signed out AMA. Currently, he comes in to the hospital for similar symptoms of left ar m upper weakness. He is under a lot of stress and is depressed. He had recently loss his green card and his job and, therefore, has been under a lot of stress. He denies any hallucinations or any vis ual issues or slurred speech at this time. Currently he is able to move his left arm up. There is n o pronator drift seen. He is able to grasp, though he says his left arm is still weak. He is refusi ng to undergo MRI for the brain because it makes him claustrophobic. I promised him that I can just give him IV Ativan x 1 dose. Psychiatry has seen the patient and has placed him on Zoloft of 125 mg p.o. daily and Klonopin. PAST MEDICAL HISTORY: Hypertension, hyperlipidemia, anxiety, depression. ALLERGIES: No known drug allergies. SOCIAL HISTORY: He is a current smoker for the past 4 years of a pack a day. Denies any alcohol or other drug use. FAMILY HISTORY: Noncontributory. HOME MEDICATIONS: Zoloft, simvastatin. REVIEW OF SYSTEMS: A 14-point review of systems is negative except for the HPI. PHYSICAL EXAMINATION: VITAL SIGNS: Temperature 98.2, pulse rate of 80, blood pressure of 135/82, respiratory rate of 21. GENERAL: The patient is sitting up in bed in no acute distress. HEENT: Atraumatic, normocephalic. PERRLA. Extraocular muscles intact. NECK: Supple. No JVD, no adenopathy noted. LUNGS: Clear to auscultation. No adventitious sounds. HEART: S1, S2, normal rate and rhythm. No murmurs, rubs, or gallops. ABDOMEN: Soft, nontender, nondistended. Bowel sounds are present. EXTREMITIES: No clubbing, no cyanosis. Peripheral pulses 2+ felt bilaterally. NEUROLOGIC: The patient is alert, oriented to person, place, month and year. Speech is fluent witho ut any errors. Cranial nerves II through XII intact. MOTOR: Strength is 5/5 in both upper and lower extremities. Has giveaway weakness in the left upper arm and very limited pronator drift the left upper arm, but otherwise, the patient is able to hold. Toes are downgoing bilaterally. SENSORY: Light touch, pinprick, proprioception, vibration intact. DTRs are 2+ throughout. COORDINATION: Rynjeg-yg-bara intact. GAIT: Deferred for now. LABORATORIES: Triglycerides 1427, cholesterol 184, LDL is less than 30. Sodium is 140, potassium 3. 8, chloride 108, carbon dioxide 26, BUN of 18, creatinine 0.8. Random glucose 142. ASSESSMENT AND PLAN: This is a 31-year-old man with history of hypertension, hyperlipidemia, anxiety , depression, who presents with unable to move the left arm, has severe depression. Likely his left upper extremity weakness could be psychosomatic versus a possible cerebrovascular accident. CT head showed no acute intracranial abnormalities. Recommend at this time: 1. A psychiatric evaluation and adjustment of his Zoloft which has been increased. 2. A B12 level. 3. An MRI of the brain and the cervical spine to assess for any acute pathology. Though patient ref used, can give IV Ativan prior to MRIs of 1 mg x 1 dose. 4. In regards to his hypertriglyceridemia, start him on fenofibrate and continue with aspirin 81 mg p.o. daily for stroke prevention. At this time, continue with current present medical management. Thank you for this consult. Bobby Thompson MD cc: [id number] TT: 09/26/2016 13:40:01 Confirmation # [id number] Dictation # [id number] vinay
--- NOTE | 2016-09-26 14:44 | CON ---
DATE: 09/26/2016 HISTORY OF PRESENT ILLNESS: The patient is a 31-year-old Mongolian male patient with the psychiatric history of depression and anxiety, no psychiatric admissions, 5 month treatment with Zoloft 100 mg, n o history of suicide attempts, who was admitted with complaints of inability to move left upper extre mity and slurring of speech. I reviewed prior records which indicated that the patient initially neris t to [facility] and CT of the head was negative and he signed out against medical advice because he did not feel comfortable being in the hospital overnight. The patient presents to [place] ED bec ause he was still unable to move his left arm; however, slurred speech did resolve. Apparently the john patel's friend at bedside stated, patient's symptoms are very likely brought on by stress and psychi marissa was called for consultation. I met with patient at bedside. He is alert and oriented x 3 and f ocus is fair and he is cooperative with questioning. The patient reports that he is still unable to move his left upper extremity. He is not showing any deficits in speech whatsoever and presents with consistent responses with my questioning. The patient reports that he has been depressed and very s tressed out due to multiple different issues, specifically he lost papers, his green card and social security card. Noticed that they were missing last Tuesday; however, they might have been gone over a month. The patient also reports that he has financial strain and also that he has had relationship issues and there has been a lot of stress regarding his work, part-time work in a [email or web address]. Th e patient is not suicidal, he is not hopeless, and he denies having these symptoms of immobility on p rior occasions. The patient reports that he has been taking Zoloft 100 mg prescribed by his primary care doctor for the last 5 months. However, does not feel it has been particularly effective for his anxiety symptoms. Affect is constricted and he does not appear to be hallucinating and denies any h istory of hallucinations and delusions, paranoia or delusions were not elicited. PSYCHIATRIC HISTORY: As noted, the patient has no history of psychiatric hospitalizations. His psyc hiatric medication management consisted of Zoloft 100 mg for the last 5 months prescribed by his inte rnist. Denies any history of suicide attempts. SOCIAL HISTORY: The patient was born and raised in [place]. He is not . He has been living in [place] in 2012. He lives by himself. He has no children. He denies any drug or alcohol issues. He works parttime [email or web address]. Vital signs were reviewed as were laboratory results. MEDICATION LIST: Reviewed and the patient was noted to on 25 mg of Zoloft daily in the hospital, [facility] the patient reported to this senior technical writer that he was taking 100 mg daily. IMPRESSION: Major depressive disorder as well as general anxiety disorder. Rule out conversion diso rder, rule out adjustment disorder with depression and anxiety. PLAN: 1. Would increase Zoloft to a dose of 125 mg to address patient's depression and anxiety, though the patient reports anxiety is more distressful to him at this time 2. Would start Klonopin 0.25 mg a.m. and at bedtime to also help with anxiety. 3. Psychiatry will continue to follow up with patient and monitor his response to medications as wel l as his symptoms. 4. Medical team should follow up on patient's complaints as a conversion disorder is a diagnosis of exclusion. Psychiatry will continue to follow up the patient and look indications for transfer to psychiatric un it and will transfer patient if it appears the patient would benefit from this type of intervention. Claudia Ardon MD cc: [id number] TT: 09/26/2016 14:43:34 Confirmation # [id number] Dictation # [id number] khadar
--- NOTE | 2016-09-27 01:38 | CARD ---
APPROVED REPORT EKG Measurement Heart [id number] <Conclusion> Normal sinus rhythm Normal ECG
--- NOTE | 2016-09-27 13:40 | CP.PCM.PCO ---
Physician Communication Note - Physician Communication Note Physician Communication Note: pt was d/c
== END 2016-09-26 14:04 | disposition left against medical advice (07) ==
LOC: ED 21:11 → ERH 09-26 00:05 → 2RSO 09-26 01:26
PROVIDERS: ADMIT Internal Medicine; ATTEND Internal Medicine
DX: R53.1 Weakness (principal); E78.00 Pure hypercholesterolemia, unspecified; I10 Essential (primary) hypertension; E78.5 Hyperlipidemia, unspecified; F44.9 Dissociative and conversion disorder, unspecified; F17.210 Nicotine dependence, cigarettes, uncomplicated; E78.1 Pure hyperglyceridemia; F32.9 Major depressive disorder, single episode, unspecified; F41.1 Generalized anxiety disorder; F40.240 Claustrophobia
CPT/HCPCS: 36415; 70450; 71010; 80048; 80053; 80061; 82550; 82607; 83036; 83615; 84484; 85025; 85610; 85730; 86850; 86900; 93005; 99285; G0378

== ENCOUNTER 2017-01-05 12:02 | Emergency (ER) | payer MEDICAID, OTHER ==
[2017-01-05 12:02] VITALS: BMI 34.5
[2017-01-05 12:13] VITALS: RESP 18; TEMP 98.4; O2SAT 97
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
[2017-01-05 14:09] VITALS: BP 138/86; PULSE 86
--- NOTE | 2017-01-05 14:13 | RAD ---
PROCEDURE: Radiographs of the Lumbar Spine. HISTORY: back pain COMPARISON: No prior. FINDINGS: BONES: Normal alignment. No listhesis. No fracture. DISC SPACES: Unremarkable. OTHER FINDINGS: None. IMPRESSION: Unremarkable radiographs of the lumbar spine.
== END 2017-01-05 14:32 | disposition short-term general hospital (02) ==
LOC: ED 12:02
DX: R51 Headache (principal); M54.5 Low back pain
CPT/HCPCS: 70450; 72110; 96372; 99285; J1885

== ENCOUNTER 2017-02-16 20:37 | Emergency (ER) | payer MEDICAID, OTHER ==
[2017-02-16 21:53] VITALS: BMI 34.7
[2017-02-16] MEDS ORDERED: Sodium Chloride 0.9% 1,000 ML IV STA (21:59)
[2017-02-16 22:06] VITALS: BP 116/77; PULSE 106; RESP 18; TEMP 97.9; O2SAT 98
--- NOTE | 2017-02-16 22:08 | ED PDOC ---
Arrival/HPI - General Chief Complaint: Abdominal Pain Time Seen by Provider: 02/16/17 21:57 Historian: Patient - History of Present Illness Narrative History of Present Illness (Text): 02/16/17 22:00 31 y.o. male whose past medical history includes hypercholesterolemia who comes to the ED with complaint outer L side abd pain since this morning that has worsened over the couse of the day. No n/v/d or constipation but feels abdominal bloating. No urinary symptoms or back pain. He says feels some mild chest tightness since being here but no sob or cough or LE swelling. Past Medical History - Infectious Disease Hx of Infectious Diseases: None - Tetanus Immunization Tetanus Immunization: Unknown - Cardiac Hx Cardiac Disorders: Yes Hx Hypertension: Yes - Pulmonary Hx Respiratory Disorders: No - Neurological Hx Neurological Disorder: No - HEENT Hx HEENT Disorder: No - Renal Hx Renal Disorder: No - Endocrine/Metabolic Hx Endocrine Disorders: Yes Hx Diabetes Mellitus Type 1: Yes - Hematological/Oncological Hx Blood Disorders: No - Integumentary Hx Dermatological Disorder: No - Musculoskeletal/Rheumatological Hx Musculoskeletal Disorders: No - Gastrointestinal Hx Gastrointestinal Disorders: No - Genitourinary/Gynecological Hx Genitourinary Disorders: No - Psychiatric Hx Psychophysiologic Disorder: Yes Hx Anxiety: Yes Hx Depression: Yes Hx Substance Use: No - Surgical History Hx Inguinal Hernia Repair: Yes - Anesthesia Hx Anesthesia: No Family/Social History Family/Social History: Unknown Family HX Smoking Status: Heavy Smoker > 10 Cigarettes Daily Hx Alcohol Use: No Hx Substance Use: No Allergies/Home Meds Allergies/Adverse Reactions: Allergies No Known Allergies Allergy (Verified 09/25/16 21:21) Home Medications: Home Meds Medication Instructions Recorded Confirmed Sertraline HCl [Zoloft] 25 mg PO DAILY 09/25/16 01/05/17 Liraglutide [Victoza 2-Ashutosh] 1.8 mg SQ DAILY 01/05/17 01/05/17 Review of Systems - Physician Review All systems were reviewed & negative as marked: Yes - Review of Systems Constitutional: absent: Fevers Eyes: Normal ENT: Normal Respiratory: Normal Cardiovascular: Other (chest tight) Gastrointestinal: Abdominal Pain. absent: Diarrhea, Nausea, Vomiting Genitourinary Male: Normal Musculoskeletal: Normal Skin: Normal Neurological: Normal Endocrine: Normal Hemo/Lymphatic: Normal Psychiatric: Normal Physical Exam Vital Signs Temp Pulse Resp BP Pulse Ox 02/16/17 22:05 97.9 F 106 H 18 116/77 98 Temperature: Afebrile Blood Pressure: Normal Pulse: Tachycardic Respiratory Rate: Normal Appearance: Positive for: Non-Toxic, Uncomfortable (due to pain) Pain Distress: Moderate Mental Status: Positive for: Alert and Oriented X 3 - Systems Exam Head: Present: Atraumatic, Normocephalic Pupils: Present: PERRL Conjunctiva: Present: Normal Ears: Present: Normal Mouth: Present: Moist Mucous Membranes Pharnyx: No: ERYTHEMA, EXUDATE Neck: Present: Normal Range of Motion Respiratory/Chest: Present: Clear to Auscultation, Good Air Exchange. No: Respiratory Distress, Accessory Muscle Use Cardiovascular: Present: Regular Rate and Rhythm, Normal S1, S2. No: Murmurs Abdomen: Present: Tenderness (ttp lateral side of the left abdomen), Normal Bowel Sounds. No: Distention, Peritoneal Signs Back: Present: Normal Inspection. No: CVA Tenderness Upper Extremity: Present: Normal Inspection. No: Cyanosis, Edema Lower Extremity: Present: Normal Inspection. No: Edema Neurological: Present: GCS=15, CN II-XII Intact, Speech Normal Skin: Present: Warm, Dry, Normal Color. No: Rashes Psychiatric: Present: Alert, Oriented x 3, Normal Insight, Normal Concentration Medical Decision Making ED Course and Treatment: 02/16/17 22:14 31 y.o. male with outer L side abd pain: Differential: renal colic vs colitis vs pancreatitis vs muscular pain Plan: -- Labs -- Toradol -- Normal Saline -- CT a/p 02/16/17 22:48 Results are pending; will need reassessment; case will be endorsed to Dr. Lovett. - RAD Interpretation Radiology Orders: 02/16/17 22:13 ABD & PELVIS W/O PO OR IV CONT [CT] Stat - Medication Orders Current Medication Orders: Sodium Chloride (Sodium Chloride 0.9%) 1,000 mls @ 1,000 mls/hr IV .Q1H STA Stop: 02/16/17 22:58 Discontinued Medications Ketorolac Tromethamine (Toradol) 30 mg IVP STAT STA Stop: 02/16/17 22:00 Disposition/Present on Arrival - Present on Arrival Any Indicators Present on Arrival: No History of DVT/PE: No History of Uncontrolled Diabetes: No Urinary Catheter: No History of Decub. Ulcer: No History Surgical Site Infection Following: None - Disposition Have Diagnosis and Disposition been Completed?: No Diagnosis: Abdominal pain Disposition Time: 23:00 Condition: STABLE Forms: [employer] ([place])
[2017-02-16 23:15] LABS: BASO # 0.02 K/mm3 (0.0-2.0); BASO % 0.2 % (0.0-3.0); EOS # 0.1 (0.0-0.7); EOS % 0.6 % (1.5-5.0); GRAN # 8.52 (1.4-6.5); GRAN % 77.2 % (50.0-68.0); HEMATOCRIT 48.5 % (42.0-52.0); LYMPH # 1.7 (1.2-3.4); LYMPH % 14.9 % (22.0-35.0); MEAN CELL VOLUME 76.6 fl (80.0-105.0); MEAN CORPUSCULAR HEMOGLOBIN 25.8 pg (25.0-35.0); MEAN CORPUSCULAR HGB CONC 33.6 g/dl (31.0-37.0); MEAN PLATELET VOLUME 9.7 fl (7.0-11.0); MONO # 0.8 (0.1-0.6); MONO % 7.1 % (1.0-6.0); RED CELL DISTRIBUTION WIDTH 14.7 % (11.5-14.5); WHITE BLOOD COUNT 11.1 10^3/ul (4.5-11.0)
[2017-02-16 23:20] LABS: INR 1.01 (0.93-1.08); PARTIAL THROMBOPLASTIN TIME 29.3 Seconds (23.7-30.8)
[2017-02-16 23:21] LABS: ALB/GLOB RATIO 1.4 (1.1-1.8); ALKALINE PHOSPHATASE 54 U/L (38-126); ALT/SGPT 46 U/L (7-56); AMYLASE 83 U/L (35-125); AST/SGOT 22 U/L (17-59); BILIRUBIN,TOTAL 0.8 mg/dL (0.2-1.3); BLOOD UREA NITROGEN 19 mg/dL (7-21); CALCIUM 8.8 mg/dL (8.4-10.5); CARBON DIOXIDE 20 mmol/L (21-33); CHLORIDE 109 mmol/L (98-107); GFR AFRICAN-AMERICAN > 60; GLUCOSE,RANDOM 131 mg/dL (70-110); LIPASE 424 U/L (23-300); POTASSIUM 3.8 mmol/L (3.6-5.0); SODIUM 143 mmol/L (132-148); TOTAL PROTEIN 7.3 g/dL (5.8-8.3)
[2017-02-16 23:34] LABS: TROPONIN I < 0.01 ng/mL
--- NOTE | 2017-02-16 23:50 | ED PDOC ---
Physical Exam Vital Signs Reviewed: Yes Vital Signs Temp Pulse Resp BP Pulse Ox 02/16/17 22:05 97.9 F 106 H 18 116/77 98 Temperature: Afebrile Blood Pressure: Normal Pulse: Regular Respiratory Rate: Normal Appearance: Positive for: Well-Appearing, Non-Toxic, Comfortable Pain Distress: None Mental Status: Positive for: Alert and Oriented X 3 Medical Decision Making ED Course and Treatment: 02/16/17 23:00 Case endorsed to me by Dr. Avila, pending CT Abdomen and Pelvis, labs, re- evaluation, and disposition. 02/16/17 23:57 Reviewed radiology, CT Abdomen and Pelvis shows: Limitations: Lack of intravenous contrast. Motion artifact - mild. Lower thorax: Minimal atelectasis. ABDOMEN: Liver: Fatty infiltration. Gallbladder and bile ducts: No calcified stones. No ductal dilation. Pancreas: Unremarkable. No ductal dilation. Spleen: No splenomegaly. Adrenals: No mass. Kidneys and ureters: No renal calculi. No hydronephrosis. Stomach and bowel: Fluid within small bowel. Fluid/loose stool within colon. No definite mural thickening. No obstruction. Appendix: Normal caliber. No inflammation. PELVIS: Bladder: Unremarkable. No stones. Reproductive: Unremarkable as visualized. ABDOMEN and PELVIS: Intraperitoneal space: No significant fluid collection. No free air. Bones/joints: No acute fracture. Soft tissues: Tiny umbilical hernia containing fat. Vasculature: Unremarkable. No aneurysm. Lymph nodes: No pathologically enlarged lymph nodes. IMPRESSION: 1. Fluid/loose stool within bowel may suggest diarrhea illness. 2. Incidental/non-acute findings are described above. - Lab Interpretations Lab Results: 02/16/17 23:03 02/16/17 23:03 Lab Results 02/16/17 23:03: Sodium 143, Potassium 3.8, Chloride 109 H, Carbon Dioxide 20 L, Anion Gap 18, BUN 19, Creatinine 1.0, Est GFR ( Amer) > 60, Est GFR (Non- Af Amer) > 60, Random Glucose 131 H, Calcium 8.8, Total Bilirubin 0.8, AST 22, ALT 46, Alkaline Phosphatase 54, Lactate Dehydrogenase 344, Total Creatine Kinase 123, Troponin I < 0.01, Total Protein 7.3, Albumin 4.2, Globulin 3.1, Albumin/Globulin Ratio 1.4, Amylase 83, Lipase 424 H 02/16/17 23:03: PT 10.9, INR 1.01, APTT 29.3 02/16/17 23:03: WBC 11.1 H D, RBC 6.33 H, Hgb 16.3, Hct 48.5, MCV 76.6 L, MCH 25.8, MCHC 33.6, RDW 14.7 H, Plt Count 168, MPV 9.7, Gran % 77.2 H, Lymph % ( Auto) 14.9 L, Holt % (Auto) 7.1 H, Eos % (Auto) 0.6 L, Baso % (Auto) 0.2, Gran # 8.52 H, Lymph # 1.7, Holt # 0.8 H, Eos # 0.1, Baso # 0.02 I have reviewed the lab results: Yes - RAD Interpretation Radiology Orders: 02/16/17 22:13 ABD & PELVIS W/O PO OR IV CONT [CT] Stat Lighter: Radiologist - Medication Orders Current Medication Orders: Discontinued Medications Sodium Chloride (Sodium Chloride 0.9%) 1,000 mls @ 1,000 mls/hr IV .Q1H STA Stop: 02/16/17 22:58 Last Admin: 02/16/17 22:10 Dose: 1,000 mls/hr eMAR Start Stop Document 02/16/17 22:10 OCS (Rec: 02/16/17 23:45 [facility]) Intravenous Solution Start Date 02/16/17 Start Time 22:10 Ketorolac Tromethamine (Toradol) 30 mg IVP STAT STA Stop: 02/16/17 22:00 Last Admin: 02/16/17 23:45 Dose: 30 mg MAR Pain Assessment Document 02/16/17 23:45 OCS (Rec: 02/16/17 23:47 [facility]) Pain Reassessment Is this a pain reassessment? Yes Sleep Is patient sleeping during reassessment? No Presence of Pain Presence of Pain Yes Pain Scale Used Pain Scale Used Numeric Location Left, Right or Bilateral Left Upper or Lower Lower Pain Location Body Site Abdomen Description Description Constant Intensity of Pain at present 10 IVP Administration Document 02/16/17 23:45 OCS (Rec: 02/16/17 23:47 [facility]) Charges for Administration # of IVP Administrations 1 Disposition/Present on Arrival - Present on Arrival Any Indicators Present on Arrival: No History of DVT/PE: No History of Uncontrolled Diabetes: No Urinary Catheter: No History of Decub. Ulcer: No History Surgical Site Infection Following: None - Disposition Have Diagnosis and Disposition been Completed?: Yes Diagnosis: Abdominal pain Disposition: HOME/ ROUTINE Disposition Time: 01:25 Condition: STABLE Discharge Instructions (ExitCare): Acute Abdominal Pain (ED) Prescriptions: Metronidazole [Flagyl] 500 mg PO TID #15 tab Forms: [employer] ([place])
--- NOTE | 2017-02-16 23:53 | CT ---
EXAM: CT Abdomen and Pelvis Without Intravenous Contrast CLINICAL HISTORY: 31 years old, male; Pain; Abdominal pain; Localized; Left; Additional info: Lateral l side abd pain TECHNIQUE: Axial computed tomography images of the abdomen and pelvis without intravenous contrast. All CT scans at this facility use one or more dose reduction techniques, viz.: automated exposure control; ma/kV adjustment per patient size (including targeted exams where dose is matched to indication; i.e. head); or iterative reconstruction technique. Coronal and sagittal reformatted images were created and reviewed. COMPARISON: CT - ABD PELVIS W/O PO OR IV CONT 03/16/2015 10:54:19 AM FINDINGS: Limitations: Lack of intravenous contrast. Motion artifact - mild. Lower thorax: Minimal atelectasis. ABDOMEN: Liver: Fatty infiltration. Gallbladder and bile ducts: No calcified stones. No ductal dilation. Pancreas: Unremarkable. No ductal dilation. Spleen: No splenomegaly. Adrenals: No mass. Kidneys and ureters: No renal calculi. No hydronephrosis. Stomach and bowel: Fluid within small bowel. Fluid/loose stool within colon. No definite mural thickening. No obstruction. Appendix: Normal caliber. No inflammation. PELVIS: Bladder: Unremarkable. No stones. Reproductive: Unremarkable as visualized. ABDOMEN and PELVIS: Intraperitoneal space: No significant fluid collection. No free air. Bones/joints: No acute fracture. Soft tissues: Tiny umbilical hernia containing fat. Vasculature: Unremarkable. No aneurysm. Lymph nodes: No pathologically enlarged lymph nodes. IMPRESSION: 1. Fluid/loose stool within bowel may suggest diarrhea illness. 2. Incidental/non-acute findings are described above.
--- NOTE | 2017-02-17 11:12 | CARD ---
APPROVED REPORT EKG Measurement Heart [id number] <Conclusion> Sinus tachycardia Otherwise normal ECG
== END 2017-02-17 01:25 | disposition home or self-care (01) ==
LOC: ED 20:37
DX: R10.9 Unspecified abdominal pain (principal); I10 Essential (primary) hypertension; F17.210 Nicotine dependence, cigarettes, uncomplicated
CPT/HCPCS: 74176; 80053; 82150; 82550; 83615; 83690; 84484; 85025; 85610; 85730; 93005; 96374; 99283; J1885; J7040

== ENCOUNTER 2017-06-29 21:56 | Emergency (ER) | payer MEDICAID ==
[2017-06-29 21:56] VITALS: BMI 34.7
[2017-06-29 22:17] VITALS: TEMP 98.2
--- NOTE | 2017-06-29 22:21 | ED PDOC ---
Arrival/HPI <Juan M Damian - Last Filed: 06/29/17 22:31> - General Historian: Patient - History of Present Illness Time/Duration: Other (see hpi) Context: Home <Erick Vasquez - Last Filed: 06/29/17 23:09> - General Chief Complaint: Abnormal Skin Integrity Time Seen by Provider: 06/29/17 22:14 - History of Present Illness Narrative History of Present Illness (Text): 06/29/17 22:18 This 32 yo male with pmh dm, htn, depression, presents to this ED c/o left thumb laceration x [employer]ADER. Patient stated while replacing a car mirror, he accidentally broke mirror and cutting his left thumb tip. Patient denies other complains. Last tetanus was 3 years ago. Patient is left hand dominant. Left Thumb has FROM. (Erick Vasquez) Past Medical History - Provider Review Nursing Documentation Reviewed: Yes - Infectious Disease Hx of Infectious Diseases: None - Tetanus Immunization Tetanus Immunization: Unknown - Cardiac Hx Cardiac Disorders: Yes Hx Hypertension: Yes - Pulmonary Hx Respiratory Disorders: No - Neurological Hx Neurological Disorder: No - HEENT Hx HEENT Disorder: No - Renal Hx Renal Disorder: No - Endocrine/Metabolic Hx Endocrine Disorders: Yes Hx Diabetes Mellitus Type 1: Yes - Hematological/Oncological Hx Blood Disorders: No - Integumentary Hx Dermatological Disorder: No - Musculoskeletal/Rheumatological Hx Musculoskeletal Disorders: No - Gastrointestinal Hx Gastrointestinal Disorders: No - Genitourinary/Gynecological Hx Genitourinary Disorders: No - Psychiatric Hx Psychophysiologic Disorder: Yes Hx Anxiety: Yes Hx Depression: Yes Hx Substance Use: No - Surgical History Hx Inguinal Hernia Repair: Yes - Anesthesia Hx Anesthesia: No <Erick Vasquez - Last Filed: 06/29/17 23:09> Family/Social History - Physician Review Nursing Documentation Reviewed: Yes Family/Social History: Other (noncontributory) Smoking Status: Heavy Smoker > 10 Cigarettes Daily Hx Alcohol Use: No Hx Substance Use: No <Erick Vasquez - Last Filed: 06/29/17 23:09> Allergies/Home Meds <Juan M Damian - Last Filed: 06/29/17 22:31> <Erick Vasquez - Last Filed: 06/29/17 23:09> Allergies/Adverse Reactions: Allergies No Known Allergies Allergy (Verified 05/20/17 21:21) Home Medications: Home Meds Medication Instructions Recorded Confirmed Sertraline HCl [Zoloft] 25 mg PO DAILY 09/25/16 06/29/17 Liraglutide [Victoza 2-Ashutosh] 1.8 mg SQ DAILY 01/05/17 06/29/17 Review of Systems - Review of Systems Constitutional: Normal. absent: Fatigue, Weight Change, Fevers Eyes: Normal ENT: Normal Respiratory: Normal Cardiovascular: Normal Gastrointestinal: Normal Genitourinary Male: Normal Musculoskeletal: Normal Skin: Normal Neurological: Normal Endocrine: Normal Hemo/Lymphatic: Normal Psychiatric: Normal <Erick Vasquez P - Last Filed: 06/29/17 23:09> Physical Exam Temperature: Afebrile Blood Pressure: Normal Pulse: Regular Respiratory Rate: Normal Appearance: Positive for: Well-Appearing, Non-Toxic, Comfortable Pain Distress: None Mental Status: Positive for: Alert and Oriented X 3 - Systems Exam Head: Present: Atraumatic, Normocephalic Pupils: Present: PERRL Extroacular Muscles: Present: EOMI Conjunctiva: Present: Normal Mouth: Present: Moist Mucous Membranes Neck: Present: Normal Range of Motion Back: Present: Normal Inspection. No: CVA Tenderness Upper Extremity: Present: Normal Inspection, Normal ROM. No: Cyanosis, Edema Lower Extremity: Present: Normal Inspection, Normal ROM. No: Edema Neurological: Present: GCS=15, CN II-XII Intact, Speech Normal, Motor Func Grossly Intact, Normal Sensory Function, Normal Cerebellar Funct, Gait Normal, Normal 2Pt Descrimination Skin: Present: Warm, Dry, Normal Color, Laceration (left thumb superficial abrasion.). No: Rashes Psychiatric: Present: Alert, Oriented x 3, Normal Insight, Normal Concentration <Erick Vasquez P - Last Filed: 06/29/17 23:09> Vital Signs Temp Pulse Resp BP Pulse Ox 06/29/17 22:15 98.2 F 93 H 18 135/72 100 Medical Decision Making <Juan M Damian - Last Filed: 06/29/17 22:31> Re-evaluation Time: 23:03 Reassessment Condition: Re-examined, Improved <Erick Vasquez - Last Filed: 06/29/17 23:09> ED Course and Treatment: 06/29/17 23:03 Re-evaluation. Patient feels better. Discussed results and plan with patient who expresses understanding. All questions answered and there is agreement with the plan to discharge home with instructions. Patient stable for discharge. Return if symptoms persist or worsen. (Erick Vasquez) - Procedure PROCEDURE NOTE (Text): 06/29/17 23:04 PROCEDURE: LACERATION REPAIR Performed by the emergency provider Location: left thumb Length: 1 cm Description: clean wound edges, no foreign bodies Distal CMS: Normal. No deficits. Neurovascularly intact. Anesthesia: Lidocaine 1% without Epi, approx. 1 cc Preparation: The wound was cleaned with NS and [place]. The area was prepped and draped in the usual sterile fashion. Exploration: The wound was explored and no foreign bodies were found. Superficial laceration, oval shape Procedure: The wound was closed with dermabond. There was good approximation. Post-Procedure: Good closure and hemostasis. The patient tolerated the procedure well and there were no complications. CSM remains intact. Post procedure dressing applied. (Erick Vasquez) - PA / ROLL ICER MACHINE / Resident Statement LORIE has reviewed & agrees with the documentation as recorded. / has examined the patient and agrees with the treatment plan. <Juan M Damian - Last Filed: 06/29/17 22:31> Disposition/Present on Arrival <Juan M Damian - Last Filed: 06/29/17 22:31> - Present on Arrival Any Indicators Present on Arrival: No History of DVT/PE: No History of Uncontrolled Diabetes: No Urinary Catheter: No History of Decub. Ulcer: No History Surgical Site Infection Following: None - Disposition Have Diagnosis and Disposition been Completed?: Yes Disposition Time: 23:06 Patient Plan: Discharge <Erick Vasquez - Last Filed: 06/29/17 23:09> - Disposition Diagnosis: Thumb laceration Disposition: HOME/ ROUTINE Condition: GOOD Discharge Instructions (ExitCare): Laceration Repair Additional Instructions: Call private doctor for follow up visit and wound check in 2 days. Keep wound clean and dry for 2 days, then clean wound with soap and water daily. Return to [facility] if wound becomes infected or worsening of pain. Prescriptions: Ibuprofen [Motrin] 600 mg PO Q8 PRN #20 tab PRN Reason: Pain, Severe (8-10) Referrals: [facility], [Primary Care Provider] - Follow up with primary [facility] [Outside] - Follow up with primary [facility] [Outside] - Follow up with primary Forms: [employer] (Croatian)
[2017-06-29 23:17] VITALS: BP 125/70; PULSE 94; RESP 16; O2SAT 97
== END 2017-06-29 23:16 | disposition home or self-care (01) ==
LOC: ED 21:56
DX: S61.012A Laceration without foreign body of left thumb without damage to nail, initial encounter (principal); W25.XXXA Contact with sharp glass, initial encounter; I10 Essential (primary) hypertension; E11.9 Type 2 diabetes mellitus without complications; F17.210 Nicotine dependence, cigarettes, uncomplicated

== ENCOUNTER 2017-08-31 04:57 | Emergency (ER) | payer MEDICAID ==
[2017-08-31 04:57] VITALS: BMI 34.7
--- NOTE | 2017-08-31 06:03 | ED PDOC ---
Arrival/HPI - General Chief Complaint: Fever Time Seen by Provider: 08/31/17 05:48 Historian: Patient - History of Present Illness Narrative History of Present Illness (Text): 08/31/17 06:03 Dipika Beyer is a 32 year old male smoker who presents to the Emergency department accompanied by relative complaining of dizziness since yesterday evening. 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 Patient denies any chest pain, shortness of breath, nausea, vomiting, diarrhea, urinary symptoms, back pain, neck pain, headache, dizziness, or any other complaints. Symptom Onset: Gradual Symptom Course: Unchanged Activities at Onset: Light Context: Home Past Medical History - Provider Review Nursing Documentation Reviewed: Yes - Infectious Disease Hx of Infectious Diseases: None - Tetanus Immunization Tetanus Immunization: Unknown - Cardiac Hx Cardiac Disorders: Yes Hx Hypertension: Yes - Pulmonary Hx Respiratory Disorders: No - Neurological Hx Neurological Disorder: No - HEENT Hx HEENT Disorder: No - Renal Hx Renal Disorder: No - Endocrine/Metabolic Hx Endocrine Disorders: Yes - Hematological/Oncological Hx Blood Disorders: No - Integumentary Hx Dermatological Disorder: No - Musculoskeletal/Rheumatological Hx Musculoskeletal Disorders: No - Gastrointestinal Hx Gastrointestinal Disorders: No - Genitourinary/Gynecological Hx Genitourinary Disorders: No - Psychiatric Hx Psychophysiologic Disorder: Yes Hx Substance Use: No - Surgical History Hx Inguinal Hernia Repair: Yes - Anesthesia Hx Anesthesia: No Family/Social History - Physician Review Nursing Documentation Reviewed: Yes Family/Social History: Unknown Family HX Smoking Status: Heavy Smoker > 10 Cigarettes Daily Hx Alcohol Use: No Hx Substance Use: No Allergies/Home Meds Allergies/Adverse Reactions: Allergies No Known Allergies Allergy (Verified 08/31/17 05:51) Home Medications: Home Meds Medication Instructions Recorded Confirmed Sertraline HCl [Zoloft] 25 mg PO DAILY 09/25/16 06/29/17 Liraglutide [Victoza 2-Ashutosh] 1.8 mg SQ DAILY 01/05/17 06/29/17 Review of Systems - Physician Review All systems were reviewed & negative as marked: Yes - Review of Systems Constitutional: Fevers Eyes: Normal ENT: Sinus Congestion Respiratory: Normal. absent: SOB, Cough Cardiovascular: Normal. absent: Chest Pain Gastrointestinal: Normal. absent: Abdominal Pain, Diarrhea, Nausea, Vomiting Genitourinary Male: Normal. absent: Dysuria, Frequency, Hematuria, Urinary Output Changes Musculoskeletal: Normal. absent: Back Pain, Neck Pain Skin: Normal. absent: Rash Neurological: Dizziness. absent: Headache Endocrine: Normal Hemo/Lymphatic: Normal Psychiatric: Normal Physical Exam Vital Signs Reviewed: Yes Vital Signs Temp Pulse Resp BP Pulse Ox 08/31/17 10:51 98.6 F 86 16 126/81 98 08/31/17 06:01 98.1 F 104 H 18 112/69 96 Temperature: Afebrile Blood Pressure: Normal Pulse: Regular Respiratory Rate: Normal Appearance: Positive for: Well-Appearing, Non-Toxic, Comfortable Pain Distress: None Mental Status: Positive for: Alert and Oriented X 3 - Systems Exam Head: Present: Atraumatic, Normocephalic Pupils: Present: PERRL Extroacular Muscles: Present: EOMI Conjunctiva: Present: Normal Ears: Present: Normal, NORMAL TM, Normal Canal. No: Erythema, TM Bulging, Fluid Mouth: Present: Moist Mucous Membranes Pharnyx: Present: Normal. No: ERYTHEMA, EXUDATE, TONSILS ENLARGED, Peritonsilar Swelling, Uvular Deviation, Muffled/Hoarse Voice, Strider, Soft Palate/Uvular Edema Nose (External): Present: Atraumatic Nose (Internal): Present: Normal Inspection Neck: Present: Normal Range of Motion. No: Meningeal Signs, MIDLINE TENDERNESS , Paraspinal Tenderness Respiratory/Chest: Present: Clear to Auscultation, Good Air Exchange. No: Respiratory Distress, Accessory Muscle Use Cardiovascular: Present: Regular Rate and Rhythm, Normal S1, S2. No: Murmurs Abdomen: No: Tenderness, Distention, Peritoneal Signs Back: Present: Normal Inspection. No: CVA Tenderness, Midline Tenderness, Paraspinal Tenderness Upper Extremity: Present: Normal Inspection. No: Cyanosis, Edema Lower Extremity: Present: Normal Inspection. No: Edema Neurological: Present: GCS=15, CN II-XII Intact, Speech Normal Skin: Present: Warm, Dry, Normal Color. No: Rashes Psychiatric: Present: Alert, Oriented x 3, Normal Insight, Normal Concentration Medical Decision Making ED Course and Treatment: 08/31/17 06:03 Impression: 32 year old male complaining of dizziness, subjective fever, and nasal congestion since yesterday. Plan: -- CT Head w/o contrast -- EKG -- Chest X-ray -- Labs -- Rapid influenza -- Antivert -- Reassess and disposition Progress Notes: - Lab Interpretations Lab Results: 08/31/17 06:09 08/31/17 06:09 Lab Results 08/31/17 06:10: Influenza Typ A,B (EIA) Negative for flu a/b 08/31/17 06:09: Sodium 140, Potassium 3.5 L, Chloride 105, Carbon Dioxide 23, Anion Gap 15, BUN 20, Creatinine 0.8, Est GFR ( Amer) > 60, Est GFR (Non- Af Amer) > 60, Random Glucose 135 H, Calcium 8.6, Total Bilirubin 0.8, AST 25, ALT 31, Alkaline Phosphatase 50, Total Protein 6.9, Albumin 3.9, Globulin 3.0, Albumin/Globulin Ratio 1.3 08/31/17 06:09: WBC 6.9 D, RBC 5.78, Hgb 14.9, Hct 43.1, MCV 74.6 L, MCH 25.8, MCHC 34.6, RDW 14.2, Plt Count 168, MPV 9.8, Gran % 73.7 H, Lymph % (Auto) 17.9 L, [place] % (Auto) 7.0 H, Eos % (Auto) 1.3 L, Baso % (Auto) 0.1, Gran # 5.07, Lymph # (Auto) 1.2, [place] # (Auto) 0.5, Eos # (Auto) 0.1, Baso # (Auto) 0.01 - RAD Interpretation Radiology Orders: 08/31/17 06:09 HEAD W/O CONTRAST [CT] Stat CHEST TWO VIEWS (PA/LAT) [RAD] Stat - Medication Orders Current Medication Orders: Discontinued Medications Meclizine HCl (Antivert) 25 mg PO STAT STA Stop: 08/31/17 06:11 Last Admin: 08/31/17 06:27 Dose: 25 mg - Transfer of Care Patient signed out to :: ayden ct scan and dispo - Scribe Statement The provider has reviewed the documentation as recorded by the Scribe Hellen Perez All medical record entries made by the Scribe were at my direction and personally dictated by me. I have reviewed the chart and agree that the record accurately reflects my personal performance of the history, physical exam, medical decision making, and the department course for this patient. I have also personally directed, reviewed, and agree with the discharge instructions and disposition. Disposition/Present on Arrival - Present on Arrival Any Indicators Present on Arrival: No History of DVT/PE: No History of Uncontrolled Diabetes: No Urinary Catheter: No History of Decub. Ulcer: No History Surgical Site Infection Following: None - Disposition Have Diagnosis and Disposition been Completed?: Yes Diagnosis: Viral syndrome Disposition: HOME/ ROUTINE Disposition Time: 07:00 Condition: GOOD Discharge Instructions (ExitCare): Viral Syndrome (DC) Additional Instructions: [place]- Rest, Plenty of fluids, Return to us if worse or new symptoms, Tylenol for fever , OTC Sudafed is ok for congestion. Follow up with your doctor within a week. He- Dr. Danielito Mendoza Forms: [facility] ([place]), SCHOOL NOTE, WORK NOTE
[2017-08-31 06:39] LABS: ALB/GLOB RATIO 1.3 (1.1-1.8); ALBUMIN 3.9 g/dL (3.0-4.8); ALT/SGPT 31 U/L (7-56); AST/SGOT 25 U/L (17-59); BLOOD UREA NITROGEN 20 mg/dL (7-21); CALCIUM 8.6 mg/dL (8.4-10.5); GFR AFRICAN-AMERICAN > 60; GFR NON-AFRICAN AMERICAN > 60
[2017-08-31 06:53] LABS: BASO # 0.01 K/mm3 (0.0-2.0); BASO % 0.1 % (0.0-3.0); EOS # 0.1 (0.0-0.7); EOS % 1.3 % (1.5-5.0); GRAN # 5.07 (1.4-6.5); GRAN % 73.7 % (50.0-68.0); HEMOGLOBIN 14.9 g/dL (14.0-18.0); LYMPH # 1.2 (1.2-3.4); LYMPH % 17.9 % (22.0-35.0); MEAN CELL VOLUME 74.6 fl (80.0-105.0); MEAN CORPUSCULAR HEMOGLOBIN 25.8 pg (25.0-35.0); MEAN CORPUSCULAR HGB CONC 34.6 g/dl (31.0-37.0); MEAN PLATELET VOLUME 9.8 fl (7.0-11.0); MONO # 0.5 (0.1-0.6); RBC 5.78 10^6/uL (3.5-6.1); RED CELL DISTRIBUTION WIDTH 14.2 % (11.5-14.5)
[2017-08-31 06:59] LABS: WHITE BLOOD COUNT 6.9 10^3/ul (4.5-11.0)
--- NOTE | 2017-08-31 07:26 | CT ---
PROCEDURE: CT HEAD WITHOUT CONTRAST. HISTORY: dizzy COMPARISON: 01/05/17 TECHNIQUE: Axial computed tomography images were obtained through the head/brain without intravenous contrast. Radiation dose: Total exam DLP = mGy-cm. This CT exam was performed using one or more of the following dose reduction techniques: Automated exposure control, adjustment of the mA and/or kV according to patient size, and/or use of iterative reconstruction technique. FINDINGS: HEMORRHAGE: No intracranial hemorrhage. BRAIN: No mass effect or edema. No atrophy or chronic microvascular ischemic changes. VENTRICLES: Unremarkable. No hydrocephalus. CALVARIUM: Unremarkable. PARANASAL SINUSES: Unremarkable as visualized. No significant inflammatory changes. MASTOID AIR CELLS: Unremarkable as visualized. No inflammatory changes. OTHER FINDINGS: None. IMPRESSION: Normal CT of the Head.
--- NOTE | 2017-08-31 09:03 | ED PDOC ---
Physical Exam Vital Signs Temp Pulse Resp BP Pulse Ox 08/31/17 06:01 98.1 F 104 H 18 112/69 96 Medical Decision Making ED Course and Treatment: 08/31/17 07:00 Patient signed out to me by Dr. Wood. Pending Head CT. Patient is a 32 year old male complaining of fever, nasal congestion, and dizziness today. Workup negative. 08/31/17 09:17 Reviewed radiology, Head CT normal. Will discharge patient. - Lab Interpretations Lab Results: 08/31/17 06:09 08/31/17 06:09 Lab Results 08/31/17 06:10: Influenza Typ A,B (EIA) Negative for flu a/b 08/31/17 06:09: Sodium 140, Potassium 3.5 L, Chloride 105, Carbon Dioxide 23, Anion Gap 15, BUN 20, Creatinine 0.8, Est GFR ( Amer) > 60, Est GFR (Non- Af Amer) > 60, Random Glucose 135 H, Calcium 8.6, Total Bilirubin 0.8, AST 25, ALT 31, Alkaline Phosphatase 50, Total Protein 6.9, Albumin 3.9, Globulin 3.0, Albumin/Globulin Ratio 1.3 08/31/17 06:09: WBC 6.9 D, RBC 5.78, Hgb 14.9, Hct 43.1, MCV 74.6 L, MCH 25.8, MCHC 34.6, RDW 14.2, Plt Count 168, MPV 9.8, Gran % 73.7 H, Lymph % (Auto) 17.9 L, [place] % (Auto) 7.0 H, Eos % (Auto) 1.3 L, Baso % (Auto) 0.1, Gran # 5.07, Lymph # (Auto) 1.2, [place] # (Auto) 0.5, Eos # (Auto) 0.1, Baso # (Auto) 0.01 - RAD Interpretation Radiology Orders: 08/31/17 06:09 HEAD W/O CONTRAST [CT] Stat CHEST TWO VIEWS (PA/LAT) [RAD] Stat - Medication Orders Current Medication Orders: Discontinued Medications Meclizine HCl (Antivert) 25 mg PO STAT STA Stop: 08/31/17 06:11 Last Admin: 08/31/17 06:27 Dose: 25 mg - Scribe Statement The provider has reviewed the documentation as recorded by the Scribe Disposition/Present on Arrival - Present on Arrival Any Indicators Present on Arrival: No History of DVT/PE: No History of Uncontrolled Diabetes: No Urinary Catheter: No History of Decub. Ulcer: No History Surgical Site Infection Following: None - Disposition Have Diagnosis and Disposition been Completed?: Yes Diagnosis: Viral syndrome Disposition: HOME/ ROUTINE Disposition Time: 09:11 Patient Plan: Discharge Patient Problems: Current Active Problems Problem Status Onset Viral syndrome Acute Condition: GOOD Discharge Instructions (ExitCare): Viral Syndrome (DC) Additional Instructions: [place]- Rest, Plenty of fluids, Return to us if worse or new symptoms, Tylenol for fever , OTC Sudafed is ok for congestion. Follow up with your doctor within a week. He- Dr. Danielito Mendoza Forms: [employer] ([place])
--- NOTE | 2017-08-31 09:14 | RAD ---
HISTORY: sob COMPARISON: 09/25/2016 TECHNIQUE: Chest PA and lateral FINDINGS: LUNGS: No active pulmonary disease. PLEURA: No significant pleural effusion identified. No pneumothorax apparent. CARDIOVASCULAR: Normal. OSSEOUS STRUCTURES: No significant abnormalities. VISUALIZED UPPER ABDOMEN: Normal. OTHER FINDINGS: None. IMPRESSION: No active disease.
[2017-08-31 10:52] VITALS: BP 126/81; PULSE 86; RESP 16; TEMP 98.6; O2SAT 98
== END 2017-08-31 10:51 | disposition home or self-care (01) ==
LOC: ED 04:57
DX: B34.9 Viral infection, unspecified (principal); I10 Essential (primary) hypertension; F17.210 Nicotine dependence, cigarettes, uncomplicated

== ENCOUNTER 2017-12-27 05:44 | Observation (INO) | payer MEDICAID ==
[2017-12-27 05:44] VITALS: BMI 34.7
--- NOTE | 2017-12-27 07:41 | ED PDOC ---
Arrival/HPI - General Chief Complaint: Psychiatric Evaluation Time Seen by Provider: 12/27/17 07:12 Historian: Patient, Family (cousin, who translates for patient (Upper Sorbian-speaking) .) - History of Present Illness Narrative History of Present Illness (Text): 12/27/17 07:40 A 32 year old male smoker, whose past medical history includes depression, anxiety, hyperlipidemia(takes medications for, including Victoza) and hypertension, who is Upper Sorbian-speaking and is accompanied by his cousin( translates for patient) presents to the emergency department complaining of difficulty ambulating due to anxiety and "nerve damage." Per cousin, patient began experiencing symptoms around approximately 05:30. States whenever patient experiences anxiety, he results in having difficulty ambulating due to "nerve damage." Lower extremity weakness starts from upper to lower legs bilaterally. Patient has had this issue in the past when he was in [place] 10 years ago. At the time, patient had seen a physician, whom reported to patient "problem is related to his physiology." Also, patient had similar episode when he went to [facility], however he had issue in the upper extremities rather than lower extremities, in which symptom lasted for approximately 3 weeks. Today, when EMS arrived, he spoke to his cousin in Upper Sorbian stating he is "bored with his life" (as stated by cousin). One of the EMS workers heard the patient and told the nurse upon arriving to the ER. However according to patient, he does experience any depression/SI/HI, except feeling anxious. There was a time patient was depressed in the past after loosing papers and Green Card documentation, and was prescribed anti-depressants. Patient denies any saddle anesthesia, any urinary symptoms, recent trauma/fall, diarrhea. PMD: Dr. Nisha Dalton Time/Duration: 4-6 hours (05:30) Symptom Onset: Sudden, Gradual Symptom Course: Unchanged Past Medical History - Provider Review Nursing Documentation Reviewed: Yes - Infectious Disease Hx of Infectious Diseases: None - Tetanus Immunization Tetanus Immunization: Unknown - Cardiac Hx Cardiac Disorders: Yes Hx Hypertension: Yes - Pulmonary Hx Respiratory Disorders: No - Neurological Hx Neurological Disorder: No - HEENT Hx HEENT Disorder: No - Renal Hx Renal Disorder: No - Endocrine/Metabolic Hx Endocrine Disorders: Yes - Hematological/Oncological Hx Blood Disorders: No - Integumentary Hx Dermatological Disorder: No - Musculoskeletal/Rheumatological Hx Musculoskeletal Disorders: No - Gastrointestinal Hx Gastrointestinal Disorders: No - Genitourinary/Gynecological Hx Genitourinary Disorders: No - Psychiatric Hx Psychophysiologic Disorder: Yes Hx Substance Use: No - Surgical History Hx Inguinal Hernia Repair: Yes - Anesthesia Hx Anesthesia: No Family/Social History - Physician Review Nursing Documentation Reviewed: Yes Family/Social History: No Known Family HX Smoking Status: Heavy Smoker > 10 Cigarettes Daily Hx Alcohol Use: No Hx Substance Use: No Allergies/Home Meds Allergies/Adverse Reactions: Allergies No Known Allergies Allergy (Verified 12/27/17 06:03) Home Medications: Home Meds Medication Instructions Recorded Confirmed Liraglutide [Victoza 2-Ashutosh] 1.8 mg SQ DAILY 01/05/17 12/27/17 Review of Systems - Review of Systems Constitutional: absent: Fevers Eyes: Normal ENT: Normal Respiratory: SOB (baseline since patient is a smoker) Cardiovascular: Normal Gastrointestinal: absent: Abdominal Pain, Diarrhea, Nausea, Vomiting Genitourinary Male: Normal Musculoskeletal: Back Pain (chronic), Neck Pain (chronic) Skin: Normal Neurological: Gait Changes (patient has difficulty ambulating due to, according to patient and cousin, when patient experiences anxiety, patient has "nerve damage", causing patient to be unable to ambulate.) Endocrine: Normal Hemo/Lymphatic: Normal Psychiatric: Anxiety. absent: Suicidal Ideation (and no homicidal ideation) Physical Exam Vital Signs Reviewed: Yes Vital Signs Temp Pulse Resp BP Pulse Ox 12/27/17 10:32 98.4 F 89 18 123/82 98 12/27/17 06:01 98.0 F 95 H 18 135/83 99 Temperature: Afebrile Blood Pressure: Normal Pulse: Regular Respiratory Rate: Normal Appearance: Positive for: Well-Appearing Pain Distress: None Mental Status: Positive for: Alert and Oriented X 3 - Systems Exam Head: Present: Atraumatic, Normocephalic Pupils: Present: PERRL Extroacular Muscles: Present: EOMI Conjunctiva: Present: Normal Neck: Present: Normal Range of Motion Respiratory/Chest: Present: Clear to Auscultation, Good Air Exchange. No: Respiratory Distress, Accessory Muscle Use Cardiovascular: Present: Regular Rate and Rhythm, Normal S1, S2. No: Murmurs Abdomen: No: Tenderness, Distention, Peritoneal Signs Upper Extremity: Present: Normal Inspection. No: Cyanosis, Edema Lower Extremity: Present: Other (bilateral lower extremity weakness 1/5; normal reflexes. withdraws to pain) Neurological: Present: GCS=15, CN II-XII Intact, Speech Normal Skin: Present: Warm, Dry, Normal Color. No: Rashes Psychiatric: Present: Alert, Oriented x 3, Normal Insight, Normal Concentration Medical Decision Making ED Course and Treatment: 12/27/17 07:44 Impression: 32 year old male with history of conversion disorder, presenting with bilateral lower extremity weakness with sudden onset at 05:30 this morning , associated with anxiety and depression. Symptoms are similar to previous conversion disorder in the past when residing in [place] at the time. Unlikely cauda equina because of no notable saddle anesthesia and patient has control over bowel and urinary movement. However given patient's weakness, will seek MRI. Unlikely abscess due to negative substance use, no fever/pinpoint tenderness. Patient has no history abnl heart rythmn. Unlikely trauma associated due to no history of any recent trauma. Plan: -- Head CT -- Cervical Spinal CT -- Lumbar Spinal MRI --> CT -- Labs -- Nicotine Patch -- Urinalysis -- Reassess and disposition Prior Visits: Notes and results from previous visits were reviewed. Patient was last seen in the emergency department on 08/31/2017 for dizziness. Progress Notes: EKG: Ordered, reviewed, and independently interpreted the EKG. Rate : 92 BPM Rhythm : NSR Interpretation : No STEMI, No ST-segment elevations or depressions, no T-wave inversions, normal intervals. Comparison : No previous EKG for comparison. 12/27/17 08:40 Patient has declined to have Lumbar MRI performed, even with sedation. Will order Lumbar Spinal CT instead. 12/27/2017 09:[address] IMPRESSION: No acute findings. Dictator: Oscar Rios MD 12/27/2017 09:[address] IMPRESSION: Unremarkable CT of the cervical spine. Dictator: Oscar Rios MD 12/27/2017 10:[address] IMPRESSION: No acute fracture, spondylolysis or spondylolisthesis. Mild degenerative disc disease at L5-S1 with a broad-based central disc protrusion and mild spinal canal stenosis. No neural foraminal narrowing. Dictator: Anaya Harper MD 12/27/17 10:36 Spoke to [facility] ryan Cornell, who agrees with patient medical admission. During admission, patient will have psychiatric follow-up. Appreciate consult w/ Dr. Smith: Neuro: to see pt. Appreciate consult w/ Dr. Peguero: hospitalist: to admit under her service. 12/27/17 11:09 12/27/17 11:11 - Lab Interpretations Lab Results: 12/27/17 08:30 12/27/17 08:30 Lab Results 12/27/17 08:30: Alcohol, Quantitative < 10 12/27/17 08:30: Salicylates < 1 L, Acetaminophen < 10.0 L 12/27/17 08:30: Urine Opiates Screen Negative, Urine Methadone Screen Negative, Ur Barbiturates Screen Negative, Ur Phencyclidine Scrn Negative, Ur Amphetamines Screen Negative, U Benzodiazepines Scrn Negative, U Oth Cocaine Metabols Negative, U Cannabinoids Screen Negative 12/27/17 08:30: Sodium 142, Potassium 3.7, Chloride 103, Carbon Dioxide 27, Anion Gap 15, BUN 14, Creatinine 0.7 L, Est GFR ( Amer) > 60, Est GFR ( Non-Af Amer) > 60, Random Glucose 129 H, Calcium 9.8, Magnesium 1.8, Total Bilirubin 0.6, AST 46, ALT 51, Alkaline Phosphatase 54, Total Creatine Kinase 157, Troponin I < 0.01, Total Protein 7.6, Albumin 4.2, Globulin 3.3, Albumin/ Globulin Ratio 1.3 12/27/17 08:30: Urine Color Yellow, Urine Appearance Clear, Urine pH 6.0, Ur Specific Roberta 1.025, Urine Protein 100 H, Urine Glucose (UA) Negative, Urine Ketones Negative, Urine Blood Trace-intact H, Urine Nitrate Negative, Urine Bilirubin Negative, Urine Urobilinogen 0.2, Ur Leukocyte Esterase Negative, Urine RBC 1 - 3, Urine WBC 0 - 2, Ur Epithelial Cells 0 - 2, Urine Bacteria Mod , Fine Granular Casts 0 - 2 12/27/17 08:30: WBC 10.1 D, RBC 5.85, Hgb 15.3, Hct 43.7, MCV 74.7 L, MCH 26.2 , MCHC 35.0, RDW 14.0, Plt Count 213, MPV 9.5, Gran % 64.9, Lymph % (Auto) 27.7 , Redwood % (Auto) 6.2 H, Eos % (Auto) 1.0 L, Baso % (Auto) 0.2, Gran # 6.55 H, Lymph # (Auto) 2.8, Redwood # (Auto) 0.6, Eos # (Auto) 0.1, Baso # (Auto) 0.02 I have reviewed the lab results: Yes - RAD Interpretation Radiology Orders: 12/27/17 07:41 HEAD W/O CONTRAST [CT] Stat 12/27/17 07:44 CERVICAL SPINE W/O CONTRAST [CT] Stat 12/27/17 08:46 LUMBAR SPINE W/O CONTRAST [CT] Stat - Medication Orders Current Medication Orders: Nicotine (Nicoderm Cq) 1 patch TD DAILY JOSEPH - Scribe Statement The provider has reviewed the documentation as recorded by the Chiara Arboleda Provider Scribe Attestation: All medical record entries made by the Scribe were at my direction and personally dictated by me. I have reviewed the chart and agree that the record accurately reflects my personal performance of the history, physical exam, medical decision making, and the department course for this patient. I have also personally directed, reviewed, and agree with the discharge instructions and disposition. Disposition/Present on Arrival - Present on Arrival Any Indicators Present on Arrival: No History of DVT/PE: No History of Uncontrolled Diabetes: No Urinary Catheter: No History of Decub. Ulcer: No History Surgical Site Infection Following: None - Disposition Have Diagnosis and Disposition been Completed?: Yes Diagnosis: Weakness Disposition Time: 10:33 Patient Problems: Current Active Problems Problem Status Onset Weakness Acute Condition: GOOD
[2017-12-27 08:54] LABS: BASO # 0.02 K/mm3 (0.0-2.0); BASO % 0.2 % (0.0-3.0); EOS # 0.1 (0.0-0.7); GRAN # 6.55 (1.4-6.5); GRAN % 64.9 % (50.0-68.0); HEMOGLOBIN 15.3 g/dL (14.0-18.0); LYMPH # 2.8 (1.2-3.4); LYMPH % 27.7 % (22.0-35.0); MEAN CELL VOLUME 74.7 fl (80.0-105.0); MEAN CORPUSCULAR HEMOGLOBIN 26.2 pg (25.0-35.0); MEAN PLATELET VOLUME 9.5 fl (7.0-11.0); MONO # 0.6 (0.1-0.6); MONO % 6.2 % (1.0-6.0); RBC 5.85 10^6/uL (3.5-6.1); URINE BILIRUBIN NEGATIVE (NEGATIVE); URINE BLOOD TRACE-INTACT (NEGATIVE); URINE GLUCOSE (UA) NEGATIVE (NEGATIVE); URINE LEUKOCYTE ESTERASE NEGATIVE Leu/uL (NEGATIVE); URINE PROTEIN 100 mg/dL (<30 mg/dL); URINE UROBILINOGEN 0.2 E.U./dL (<1 E.U./dL); WHITE BLOOD COUNT 10.1 10^3/ul (4.5-11.0)
[2017-12-27 09:07] LABS: ALB/GLOB RATIO 1.3 (1.1-1.8); ALBUMIN 4.2 g/dL (3.0-4.8); ALT/SGPT 51 U/L (7-56); AST/SGOT 46 U/L (17-59); BLOOD UREA NITROGEN 14 mg/dL (7-21); CALCIUM 9.8 mg/dL (8.4-10.5); GFR AFRICAN-AMERICAN > 60; GFR NON-AFRICAN AMERICAN > 60
[2017-12-27 09:08] LABS: ACETAMINOPHEN < 10.0 ug/ml (10.0-20.0); SALICYLATE < 1 mg/dL (2.0-20.0)
[2017-12-27 09:15] LABS: URINE APPEARANCE CLEAR (CLEAR); URINE COLOR YELLOW (YELLOW)
[2017-12-27 09:18] LABS: TROPONIN I < 0.01 ng/mL
[2017-12-27 09:21] LABS: BENZODIAZEPINES, UR NEGATIVE (NEGATIVE); PHENCYCLIDINE, UR NEGATIVE (NEGATIVE)
[2017-12-27 09:29] LABS: URINE BACTERIA MOD (NEG); URINE EPITHELIAL CELLS 0 - 2 /hpf (0-5); URINE FINE GRANULAR CAST 0 - 2 /hpf (0-2); URINE WBC 0 - 2 /hpf (0-6)
--- NOTE | 2017-12-27 09:30 | CT ---
Date of service: 12/27/2017 PROCEDURE: CT HEAD WITHOUT CONTRAST. HISTORY: weakness COMPARISON: 08/31/2017 TECHNIQUE: Axial computed tomography images were obtained through the head/brain without intravenous contrast. Radiation dose: Total exam DLP = 861 mGy-cm. This CT exam was performed using one or more of the following dose reduction techniques: Automated exposure control, adjustment of the mA and/or kV according to patient size, and/or use of iterative reconstruction technique. FINDINGS: HEMORRHAGE: No intracranial hemorrhage. BRAIN: No mass effect or edema. No atrophy or chronic microvascular ischemic changes. VENTRICLES: Unremarkable. No hydrocephalus. CALVARIUM: Unremarkable. PARANASAL SINUSES: Unremarkable as visualized. No significant inflammatory changes. MASTOID AIR CELLS: Unremarkable as visualized. No inflammatory changes. OTHER FINDINGS: None IMPRESSION: No acute findings
--- NOTE | 2017-12-27 09:40 | CT ---
Date of service: 12/27/2017 PROCEDURE: CT Cervical Spine without contrast HISTORY: weakness COMPARISON: None available. TECHNIQUE: Axial computed tomography images were obtained of the cervical spine without the use of intravenous contrast. Coronal and sagittal reformatted images were created and reviewed. Radiation dose: Total exam DLP = 573 mGy-cm. This CT exam was performed using one or more of the following dose reduction techniques: Automated exposure control, adjustment of the mA and/or kV according to patient size, and/or use of iterative reconstruction technique. FINDINGS: VERTEBRAE: No fracture. Normal alignment. No destructive bony lesion. DISCS/SPINAL CANAL/NEURAL FORAMINA: No significant central canal or neural foraminal stenosis. Discs heights are grossly preserved. PARASPINAL SOFT TISSUES: Unremarkable. OTHER FINDINGS: None. IMPRESSION: Unremarkable CT of the cervical spine.
[2017-12-27 10:00] LABS: BARBITURATES, UR NEGATIVE (NEGATIVE); OPIATES, UR NEGATIVE (NEGATIVE)
--- NOTE | 2017-12-27 10:30 | CT ---
Date of service: 12/27/2017 PROCEDURE: CT Lumbar Spine without contrast HISTORY: declines MRI, b/l LE weakness COMPARISON: None available. TECHNIQUE: Axial computed tomography images were obtained of the lumbar spine without the use of intravenous contrast. Coronal and sagittal reformatted images were created and reviewed. Radiation dose: Total exam DLP = 1593.54 mGy-cm. This CT exam was performed using one or more of the following dose reduction techniques: Automated exposure control, adjustment of the mA and/or kV according to patient size, and/or use of iterative reconstruction technique. FINDINGS: VERTEBRAE: There is normal alignment of the lumbar vertebral bodies. There is normal lumbar lordosis. There is no acute fracture, spondylolysis or spondylolisthesis. Bone mineralization is normal. DISCS/SPINAL CANAL/NEURAL FORAMINA: Evaluation of the spinal canal, conus medullaris, nerve roots of cauda equina and discs is limited on noncontrast examination. Allowing for this, L1-2: Unremarkable. L2-3: Mild posterior disc bulge without neural foraminal narrowing or central spinal canal stenosis. L3-4: Mild posterior disc bulge without neural foraminal narrowing or central spinal canal stenosis. L4-5: Mild posterior disc bulge without neural foraminal narrowing or central spinal canal stenosis. L5-S1: Broad-based central disc protrusion and mild spinal canal stenosis. No neural foraminal narrowing. . PARASPINAL SOFT TISSUES: Unremarkable. OTHER FINDINGS: None. IMPRESSION: No acute fracture, spondylolysis or spondylolisthesis. Mild degenerative disc disease at L5-S1 with a broad-based central disc protrusion and mild spinal canal stenosis. No neural foraminal narrowing.
--- NOTE | 2017-12-27 12:41 | CP.PCM.HP ---
History of Present Illness - History of Present Illness History of Present Illness: CC: bilateral leg weakness HPI: 32yo Lithuanian-speaking male PMHx HLD, depression, anxiety was BIBA to [facility] ED s/p fall at home. Patient reports that his "legs gave out" and he denied any LOC , head trauma, slurred speech, loss of bowel/bladder incontinence, biting of the tongue, foaming at the mouth associated with the fall. Patient admits to experiencing non-radiating chest pressure at the left sternal border at the time of the fall, but states that it has since resolved. He also admits to experiencing a depressed mood at the time of the fall. He states that, approximately 7 years ago in [place], he experienced a similar episode of bilateral leg weakness and a subsequent fall in the context of a depressed mood. States that he follows Dr. Shah and was told that he had "nerve damage" in his legs. On ROS, patient denies fever, chills, headache, blurry vision, chest pain, shortness of breath, abdominal pain, nausea, vomiting, diarrhea, constipation, changes with urination, numbness, tingling, weakness, and suicidal ideations. He did admit to neck pain and mild back pain. States that the neck pain is his baseline and is controlled with ibuprofen. Attributes back pain to the fall. PMHx: HLD, depression, anxiety PSurgHx: none SocHx: Smokes 10-15 cigarettes/day for the past 4 years. Denies alcohol and recreational drug use. Works part-time as a foreign food specialty cook. FamHx: father-DM, HTN Meds: Victoza, a cholesterol medication that could not be recalled, ibuprofen as -needed, and multivitamin. ALL: NKDA PMD: Dr. Cinthya Dalton Insurance: [employer] Present on Admission - Present on Admission Any Indicators Present on Admission: No Review of Systems - Review of Systems All systems: reviewed and no additional remarkable complaints except - Constitutional Constitutional: As Per HPI. absent: Chills, Fever - EENT Eyes: As Per HPI. absent: Blurred Vision Ears: As Per HPI. absent: Dizziness Nose/Mouth/Throat: As Per HPI. absent: Sore Throat - Cardiovascular Cardiovascular: As Per HPI, Chest Pain (resolved). absent: Dyspnea, Edema, Palpitations, Pedal Edema - Respiratory Respiratory: As Per HPI. absent: Cough, Dyspnea, Chest Congestion - Gastrointestinal Gastrointestinal: As Per HPI. absent: Abdominal Pain, Constipation, Diarrhea, Nausea, Vomiting - Genitourinary Genitourinary: As Per HPI. absent: Dysuria, Hematuria - Musculoskeletal Musculoskeletal: As Per HPI. absent: Back Pain, Numbness, Tingling Additional comments: weakness b/l LE - Integumentary Integumentary: As Per HPI. absent: Dry Skin, Rash - Neurological Neurological: As Per HPI, Weakness (b/l LE). absent: Disequilibrium, Dizziness , Headaches - Psychiatric Psychiatric: As Per HPI, Depression - Endocrine Endocrine: As Per HPI. absent: Polydipsia, Polyphagia, Polyuria - Hematologic/Lymphatic Hematologic: As Per HPI. absent: Easy Bleeding, Easy Bruising, Lymphadenopathy Past Patient History - Infectious Disease Hx of Infectious Diseases: None - Tetanus Immunizations Tetanus Immunization: Unknown - Past Social History Smoking Status: Heavy Smoker > 10 Cigarettes Daily - CARDIAC Hx Cardiac Disorders: Yes Hx Hypertension: Yes - PULMONARY Hx Respiratory Disorders: No - NEUROLOGICAL Hx Neurological Disorder: No - HEENT Hx HEENT Problems: No - RENAL Hx Chronic Kidney Disease: No - ENDOCRINE/METABOLIC Hx Endocrine Disorders: Yes - HEMATOLOGICAL/ONCOLOGICAL Hx Blood Disorders: No - INTEGUMENTARY Hx Dermatological Problems: No - MUSCULOSKELETAL/RHEUMATOLOGICAL Hx Musculoskeletal Disorders: No - GASTROINTESTINAL Hx Gastrointestinal Disorders: No - GENITOURINARY/GYNECOLOGICAL Hx Genitourinary Disorders: No - PSYCHIATRIC Hx Psychophysiologic Disorder: Yes Hx Substance Use: No - SURGICAL HISTORY Hx Surgeries: No - ANESTHESIA Hx Anesthesia: No Meds Allergies/Adverse Reactions: Allergies Allergy/AdvReac Type Severity Reaction Status Date / Time No Known Allergies Allergy Verified 12/27/17 06:03 Physical Exam - Constitutional Appears: Non-toxic, No Acute Distress - Head Exam Head Exam: ATRAUMATIC, NORMAL INSPECTION, NORMOCEPHALIC - Eye Exam Eye Exam: EOMI, Normal appearance, PERRL. absent: Conjunctival injection, Scleral icterus Pupil Exam: NORMAL ACCOMODATION - ENT Exam ENT Exam: Mucous Membranes Moist - Neck Exam Neck exam: Positive for: Full Rom, Normal Inspection. Negative for: Lymphadenopathy - Respiratory Exam Respiratory Exam: Clear to Auscultation Bilateral, NORMAL BREATHING PATTERN. absent: Accessory Muscle Use, Rales, Rhonchi, Wheezes, Respiratory Distress - Cardiovascular Exam Cardiovascular Exam: REGULAR RHYTHM, RRR, +S1, +S2. absent: Systolic Murmur - GI/Abdominal Exam GI & Abdominal Exam: Normal Bowel Sounds, Soft. absent: Firm, Guarding, Rigid, Tenderness - Rectal Exam Rectal Exam: Deferred - Extremities Exam Extremities exam: Positive for: normal inspection, pedal pulses present. Negative for: calf tenderness, normal capillary refill, pedal edema, tenderness - Back Exam Back exam: NORMAL INSPECTION. absent: rash noted - Neurological Exam Neurological exam: Alert, CN II-XII Intact, Oriented x3 - Psychiatric Exam Psychiatric exam: Normal Affect, Normal Mood - Skin Skin Exam: Dry, Intact, Normal Color, Warm Results - Vital Signs Recent Vital Signs: Last Vital Signs Temp 98.9 F 12/27/17 12:00 Pulse 86 12/27/17 12:00 Resp 19 12/27/17 12:00 BP 123/82 12/27/17 10:32 Pulse Ox 97 12/27/17 12:00 - Labs Result Diagrams: 12/27/17 08:30 12/27/17 08:30 Assessment & Plan - Assessment and Plan (Free Text) Assessment: 32yo Lithuanian-speaking male PMHx HLD was BIBA to [facility] ED s/p fall at home Plan: Mechanical Fall secondary to b/l leg weakness -CT head: unremarkable -CT cervical spine: unremarkable -CT lumbar spine: unremarkable -Patient has 5/5 muscle strength in b/l LE and sensation is intact b/l LE with no focal deficits -Neuro consult: Dr. Smith -Physical therapy eval & treat -Fall Risk protocol Suicidal Ideations and hx of depression -1:1 sitter -Zoloft 100mg po qd -Psych consult: Dr. Calix Hx of HLD -Lipitor 10mg po hs Hx of DM2 -Accucheck ACHS -RISS low ACHS Hx of Tobacco abuse -Nicotine patch -Smoking cessation counseling DVT ppx: Heparin 5000u sc q12 Diet: HHD with [facility] Dispo: patient is medically optimized for transfer to [facility] for involuntary psych admission Discussed with Dr. Sha Bashir PGY3
--- NOTE | 2017-12-27 15:43 | CP.PCM.CON ---
History of Present Illness - History of Present Illness History of Present Illness: Keenan Hernandez PGY2 Neurology Consult Note for Dr. Smith Mr. Beyer is a 32-year-old Marshallese male with a PMH of HTN, HLD, anxiety and depression, with multiple prior admissions for various neurological symptoms who presented to the ED with anxiety and "nerve damage." Per ED note, whenever the patient gets anxious, his experiences difficulty ambulating due to this nerve damage. Head CT, cervical CT and lumbar spine CT were all unremarkable except for mild DJD at L5-S1 with a broad-based central disc protrusion and mild spinal canal stenosis, no neural foraminal narrowing noted. Patient is admitted to medical floor with psychiatry consult. Neurology is consulted for this lower extremity waekness. Vital signs, labs and urine toxicology screen of all been unremarkable. When evaluated, the patient states that he is asymptomatic and is able to get up and walk with no ataxia noted. Per nursing staff, the patient is stable and has been walking around the floor with no noted difficulty. Patient denies chest pain, shortness of breath, dizziness, headaches, fevers/chills, nausea/ vomiting. 12-pt ROS was reviewed and is otherwise unremarkable. PMH: As above PSH: None Meds: As per MARm, reviewed Allergies: NKDA SHx: Smokes 1/2 ppd for the past 4 years, denies alcohol or recreational drug use FHx: Father, DM2 and HTN Review of Systems - Review of Systems All systems: reviewed and no additional remarkable complaints except (as per HPI ) Past Patient History - Infectious Disease Hx of Infectious Diseases: None - Tetanus Immunizations Tetanus Immunization: Unknown - Past Social History Smoking Status: Heavy Smoker > 10 Cigarettes Daily Alcohol: None Drugs: Denies - CARDIAC Hx Cardiac Disorders: Yes Hx Hypercholesterolemia: Yes Hx Hypertension: Yes - PULMONARY Hx Respiratory Disorders: No - NEUROLOGICAL Hx Neurological Disorder: No - HEENT Hx HEENT Problems: No - RENAL Hx Chronic Kidney Disease: No - ENDOCRINE/METABOLIC Hx Endocrine Disorders: No - HEMATOLOGICAL/ONCOLOGICAL Hx Blood Disorders: No - INTEGUMENTARY Hx Dermatological Problems: No - MUSCULOSKELETAL/RHEUMATOLOGICAL Hx Musculoskeletal Disorders: No - GASTROINTESTINAL Hx Gastrointestinal Disorders: No - GENITOURINARY/GYNECOLOGICAL Hx Genitourinary Disorders: No - PSYCHIATRIC Hx Psychophysiologic Disorder: Yes Hx Anxiety: Yes Hx Depression: Yes Hx Substance Use: No - SURGICAL HISTORY Hx Surgeries: No - ANESTHESIA Hx Anesthesia: No Meds Allergies/Adverse Reactions: Allergies Allergy/AdvReac Type Severity Reaction Status Date / Time No Known Allergies Allergy Verified 12/27/17 06:03 - Medications Medications: Current Medications Atorvastatin Calcium (Lipitor) 10 mg PO DIN JOSEPH Heparin Sodium (Porcine) (Heparin) 5,000 units SC Q12 JOSEPH PRN Reason: Protocol Nicotine (Nicoderm Cq) 1 patch TD DAILY [facility] Last Admin: 12/27/17 13:04 Dose: 1 patch Physical Exam - Constitutional Appears: Well, Non-toxic, No Acute Distress - Head Exam Head Exam: ATRAUMATIC, NORMAL INSPECTION - Eye Exam Eye Exam: EOMI, Normal appearance, PERRL - ENT Exam ENT Exam: Mucous Membranes Moist - Neck Exam Neck exam: Positive for: Normal Inspection - Respiratory Exam Respiratory Exam: NORMAL BREATHING PATTERN. absent: Respiratory Distress - Cardiovascular Exam Cardiovascular Exam: RRR, +S1, +S2 - GI/Abdominal Exam GI & Abdominal Exam: Normal Bowel Sounds, Soft. absent: Distended, Tenderness - Extremities Exam Extremities exam: Positive for: full ROM, normal inspection. Negative for: pedal edema - Back Exam Back exam: NORMAL INSPECTION - Neurological Exam Neurological exam: Alert, CN II-XII Intact, Normal Gait, Oriented x3 Additional comments: no motor sensory deficits no dysmetria noted - Psychiatric Exam Psychiatric exam: Anxious - Skin Skin Exam: Warm Results - Vital Signs Recent Vital Signs: Last Vital Signs Temp 98.9 F 12/27/17 12:00 Pulse 86 12/27/17 12:00 Resp 18 12/27/17 13:02 BP 123/82 12/27/17 10:32 Pulse Ox 97 12/27/17 12:00 - Labs Result Diagrams: 12/27/17 08:30 12/27/17 08:30 Assessment & Plan - Assessment and Plan (Free Text) Assessment: 32-year-old Marshallese male with a PMH of HTN, HLD, anxiety and depression, with multiple prior admissions for various neurological symptoms who presented to the ED with anxiety and "nerve damage" with difficulty ambulating. Symptoms could be due to conversion syndrome or another psychomotor syndrome vs DJD but CVA is ruled out, and patient will require psychiatry evaluation. Plan: - Lipid panel pending - PT eval pending - moderate fall risk - psych consulted - further recs per Dr. Smith Will sign off at this time. Please reconsult if needed. Case was reviewed and discussed with attending, Dr. Luis Hernandez PGY2
[2017-12-27] MEDS: Insulin Lispro (humaLOG) LOW Coverage SC SCH ×2 (18:03→22:08)
--- NOTE | 2017-12-27 21:00 | CARD ---
APPROVED REPORT Date of service: 12/27/2017 EKG Measurement Heart [id number] <Conclusion> Poor data quality, interpretation may be adversely affected Normal sinus rhythm Normal ECG
[2017-12-28 07:28] LABS: BASO # 0.03 K/mm3 (0.0-2.0); BASO % 0.4 % (0.0-3.0); EOS # 0.1 (0.0-0.7); EOS % 1.9 % (1.5-5.0); GRAN # 3.49 (1.4-6.5); GRAN % 51.3 % (50.0-68.0); HEMOGLOBIN 15.3 g/dL (14.0-18.0); LYMPH # 2.7 (1.2-3.4); LYMPH % 39.1 % (22.0-35.0); MEAN CELL VOLUME 74.8 fl (80.0-105.0); MEAN CORPUSCULAR HEMOGLOBIN 25.9 pg (25.0-35.0); MEAN CORPUSCULAR HGB CONC 34.6 g/dl (31.0-37.0); MONO # 0.5 (0.1-0.6); MONO % 7.3 % (1.0-6.0); RBC 5.91 10^6/uL (3.5-6.1); RED CELL DISTRIBUTION WIDTH 14.1 % (11.5-14.5); WHITE BLOOD COUNT 6.8 10^3/ul (4.5-11.0)
[2017-12-28 07:54] LABS: ALB/GLOB RATIO 1.2 (1.1-1.8); ALBUMIN 3.9 g/dL (3.0-4.8); ALT/SGPT 50 U/L (7-56); AST/SGOT 24 U/L (17-59); BLOOD UREA NITROGEN 13 mg/dL (7-21); CALCIUM 9.2 mg/dL (8.4-10.5); GFR AFRICAN-AMERICAN > 60; GFR NON-AFRICAN AMERICAN > 60; HDL CHOLESTEROL 24 mg/dL (29-60); LDL CHOLESTEROL 49 mg/dL (0-129)
[2017-12-28 08:04] VITALS: BP 107/76; PULSE 85; RESP 20; TEMP 97.8; O2SAT 99
[2017-12-28] MEDS: Insulin Lispro (humaLOG) LOW Coverage SC SCH (10:58)
--- NOTE | 2017-12-28 11:23 | CP.PCM.DIS ---
Provider - Provider Date of Admission: 12/27/17 10:59 Attending physician: Angie Dalton DO Primary care physician: Fariha Dalton MD Time Spent in preparation of Discharge (in minutes): 45 Diagnosis - Discharge Diagnosis (1) Leg weakness, bilateral Status: Resolved Priority: Medium (2) HLD (hyperlipidemia) Status: Chronic Priority: Medium (3) Diabetes mellitus Status: Chronic Priority: Medium (4) Tobacco abuse Status: Chronic Priority: Medium (5) Depression Status: Chronic Priority: Medium Hospital Course - Lab Results Lab Results: Most Recent Lab Values WBC 6.8 10^3/ul (4.5-11.0) D 12/28/17 07:00 RBC 5.91 10^6/uL (3.5-6.1) 12/28/17 07:00 Hgb 15.3 g/dL (14.0-18.0) 12/28/17 07:00 Hct 44.2 % (42.0-52.0) 12/28/17 07:00 MCV 74.8 fl (80.0-105.0) L 12/28/17 07:00 MCH 25.9 pg (25.0-35.0) 12/28/17 07:00 MCHC 34.6 g/dl (31.0-37.0) 12/28/17 07:00 RDW 14.1 % (11.5-14.5) 12/28/17 07:00 Plt Count 187 10^3/uL (120.0-450.0) 12/28/17 07:00 MPV 9.0 fl (7.0-11.0) 12/28/17 07:00 Gran % 51.3 % (50.0-68.0) 12/28/17 07:00 Lymph % (Auto) 39.1 % (22.0-35.0) H 12/28/17 07:00 Fleming % (Auto) 7.3 % (1.0-6.0) H 12/28/17 07:00 Eos % (Auto) 1.9 % (1.5-5.0) 12/28/17 07:00 Baso % (Auto) 0.4 % (0.0-3.0) 12/28/17 07:00 Gran # 3.49 (1.4-6.5) 12/28/17 07:00 Lymph # (Auto) 2.7 (1.2-3.4) 12/28/17 07:00 Fleming # (Auto) 0.5 (0.1-0.6) 12/28/17 07:00 Eos # (Auto) 0.1 (0.0-0.7) 12/28/17 07:00 Baso # (Auto) 0.03 K/mm3 (0.0-2.0) 12/28/17 07:00 Sodium 141 mmol/L (132-148) 12/28/17 07:00 Potassium 3.7 mmol/L (3.6-5.0) 12/28/17 07:00 Chloride 105 mmol/L (98-107) 12/28/17 07:00 Carbon Dioxide 25 mmol/L (21-33) 12/28/17 07:00 Anion Gap 16 (10-20) 12/28/17 07:00 BUN 13 mg/dL (7-21) 12/28/17 07:00 Creatinine 0.7 mg/dl (0.8-1.5) L 12/28/17 07:00 Est GFR ( Amer) > 60 12/28/17 07:00 Est GFR (Non-Af Amer) > 60 12/28/17 07:00 POC Glucose (mg/dL) 151 mg/dL (65-110) H 12/28/17 06:04 Random Glucose 146 mg/dL (70-110) H 12/28/17 07:00 Calcium 9.2 mg/dL (8.4-10.5) 12/28/17 07:00 Phosphorus 4.2 mg/dL (2.5-4.5) 12/28/17 07:00 Magnesium 2.0 mg/dL (1.7-2.2) 12/28/17 07:00 Total Bilirubin 0.8 mg/dL (0.2-1.3) 12/28/17 07:00 AST 24 U/L (17-59) 12/28/17 07:00 ALT 50 U/L (7-56) 12/28/17 07:00 Alkaline Phosphatase 51 U/L (38-126) 12/28/17 07:00 Total Creatine Kinase 157 U/L (35-230) 12/27/17 08:30 Troponin I < 0.01 ng/mL 12/27/17 08:30 Total Protein 7.1 g/dL (5.8-8.3) 12/28/17 07:00 Albumin 3.9 g/dL (3.0-4.8) 12/28/17 07:00 Globulin 3.2 gm/dL 12/28/17 07:00 Albumin/Globulin Ratio 1.2 (1.1-1.8) 12/28/17 07:00 Triglycerides 460 mg/dL (35-160) H 12/28/17 07:00 Cholesterol 140 mg/dL (130-200) 12/28/17 07:00 LDL Cholesterol Direct 49 mg/dL (0-129) 12/28/17 07:00 HDL Cholesterol 24 mg/dL (29-60) L 12/28/17 07:00 Urine Color Yellow (YELLOW) 12/27/17 08:30 Urine Appearance Clear (CLEAR) 12/27/17 08:30 Urine pH 6.0 (4.7-8.0) 12/27/17 08:30 Ur Specific [place] 1.025 (1.005-1.035) 12/27/17 08:30 Urine Protein 100 mg/dL (<30 mg/dL) H 12/27/17 08:30 Urine Glucose (UA) Negative mg/dL (NEGATIVE) 12/27/17 08:30 Urine Ketones Negative mg/dL (NEGATIVE) 12/27/17 08:30 Urine Blood Trace-intact (NEGATIVE) H 12/27/17 08:30 Urine Nitrate Negative (NEGATIVE) 12/27/17 08:30 Urine Bilirubin Negative (NEGATIVE) 12/27/17 08:30 Urine Urobilinogen 0.2 E.U./dL (<1 E.U./dL) 12/27/17 08:30 Ur Leukocyte Esterase Negative Vivek/uL (NEGATIVE) 12/27/17 08:30 Urine RBC 1 - 3 /hpf (0-2) 12/27/17 08:30 Urine WBC 0 - 2 /hpf (0-6) 12/27/17 08:30 Ur Epithelial Cells 0 - 2 /hpf (0-5) 12/27/17 08:30 Urine Bacteria Mod (NEG) 12/27/17 08:30 Fine Granular Casts 0 - 2 /hpf (0-2) 12/27/17 08:30 Salicylates < 1 mg/dL (2.0-20.0) L 12/27/17 08:30 Urine Opiates Screen Negative (NEGATIVE) 12/27/17 08:30 Urine Methadone Screen Negative (NEGATIVE) 12/27/17 08:30 Acetaminophen < 10.0 ug/ml (10.0-20.0) L 12/27/17 08:30 Ur Barbiturates Screen Negative (NEGATIVE) 12/27/17 08:30 Ur Phencyclidine Scrn Negative (NEGATIVE) 12/27/17 08:30 Ur Amphetamines Screen Negative (NEGATIVE) 12/27/17 08:30 U Benzodiazepines Scrn Negative (NEGATIVE) 12/27/17 08:30 U Oth Cocaine Metabols Negative (NEGATIVE) 12/27/17 08:30 U Cannabinoids Screen Negative (NEGATIVE) 12/27/17 08:30 Alcohol, Quantitative < 10 mg/dL (0-10) 12/27/17 08:30 - Hospital Course Hospital Course: 32yo Greenlandic-speaking male PMHx HLD was BIBA to [facility] ED s/p fall at home due to leg weakness. Per EMS, suicidal ideations were expressed prior to arriving at the hospital. A 1:1 sitter was instituted though the patient denied any suicidal ideations upon admission. CT of the head, CT of the cervical spine, and CT of the lumbar spine were ordered and were all unremarkable. EKG showed HR 92, NSR. Lipitor was started for HLD, a nicotine patch was issued for tobacco abuse, and zoloft was started for depressed mood. Heparin was started for DVT prophylaxis. Dr. Smith was consulted for neurology and patient was cleared for discharge by neurology. Dr. Fountain was consulted for psych and cleared the patient for discharge. Patient was evaluated by [facility] for involuntary psych admission but did not qualify. Labs were drawn and revealed elevated triglycerides. Patient was given new medication fenofibrate upon discharge. Patient was instructed to continue the following home medications: -cetrizine -victoza -multivitamin -crestor -zoloft Patient was instructed to follow-up with his PMD, Dr. Cinthya Dalton, within 1 week of discharge. He was also instructed to establish care with a psychiatrist and a referral was made for Dr. Fountain. Patient educated on the importance of smoking cessation, healthy diet, and exercise. Patient further informed to return to the nearest ED for worsening or newly concerning symptoms. Patient is now medically optimized for discharge. Discharge Exam - Head Exam Head Exam: ATRAUMATIC, NORMAL INSPECTION - Eye Exam Eye Exam: Normal appearance, PERRL - ENT Exam ENT Exam: Mucous Membranes Moist - Respiratory Exam Respiratory Exam: Clear to PA & Lateral. absent: Rales, Rhonchi, Wheezes, Respiratory Distress - Cardiovascular Exam Cardiovascular Exam: REGULAR RHYTHM, +S1, +S2. absent: Gallop, Rubs, Systolic Murmur - GI/Abdominal Exam GI & Abdominal Exam: Normal Bowel Sounds, Soft. absent: Tenderness - Extremities Exam Extremities exam: normal inspection - Neurological Exam Neurological exam: Alert, Oriented x3 - Psychiatric Exam Psychiatric exam: Normal Affect, Normal Mood - Skin Skin Exam: Dry, Intact, Normal Color, Warm Discharge Plan - Discharge Medications Prescriptions: Fenofibrate [Tricor] 48 mg PO DAILY #30 tab - Follow Up Plan Condition: GOOD Disposition: HOME/ ROUTINE Instructions: Weakness (ED) Additional Instructions: Please follow-up with your primary medical doctor, Dr Sherman Dalton, within 1 week of discharge Please establish care with a psychiatrist if you feel depressed or have mood instability - a psychiatrist can help you. A referral has been made to the psychiatrist that saw you while you were admitted. If you already have a psychiatrist, please see him/her within 1 week. Please start new medication: Fenofibrate 48mg Once daily by mouth Please continue all your normal home medications - this includes the cetrizine, victoza, multivitamin, crestor, zoloft. If symptoms return, please go to your nearest emergency department. Referrals: Fifi Fountain MD [Staff Provider] - Nisha Dalton MD [Primary Care Provider] -
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
== END 2017-12-28 12:45 | disposition home or self-care (01) ==
LOC: ED 05:44 → ERH 10:59 → INTOOBSV 10:59 → ERH 11:27 → 5RSO 12:41
PROVIDERS: ADMIT Internal Medicine; ATTEND Hospitalist
DX: R53.1 Weakness (principal); F32.9 Major depressive disorder, single episode, unspecified; F41.9 Anxiety disorder, unspecified; I10 Essential (primary) hypertension; F17.210 Nicotine dependence, cigarettes, uncomplicated; M48.07 Spinal stenosis, lumbosacral region; F06.30 Mood disorder due to known physiological condition, unspecified; M51.37 Other intervertebral disc degeneration, lumbosacral region; M51.27 Other intervertebral disc displacement, lumbosacral region; M19.90 Unspecified osteoarthritis, unspecified site; E11.9 Type 2 diabetes mellitus without complications; E78.5 Hyperlipidemia, unspecified; E78.00 Pure hypercholesterolemia, unspecified; E78.1 Pure hyperglyceridemia; Z79.84 Long term (current) use of oral hypoglycemic drugs; Z83.3 Family history of diabetes mellitus; Z82.49 Family history of ischemic heart disease and other diseases of the circulatory system
CPT/HCPCS: 36415; 70450; 72125; 72131; 80053; 80061; 80320; 80324; 80329; 80345; 80346; 80349; 80353; 80358; 80361; 81001; 82550; 82948; 83735; 83992; 84100; 84484; 85025; 90791; 93005; 99284; G0378; J1644

== ENCOUNTER 2018-06-01 10:31 | Outpatient (CLI) | payer MEDICAID | END 2018-06-01 10:32 | disposition home or self-care (01) | LOC: RAD 10:31 | DX: M54.12 Radiculopathy, cervical region (principal) ==